=== PATIENT | female | born 1940 | race African-American/Black ===

== ENCOUNTER 2017-01-29 17:55 | Inpatient (IN) | payer MEDICARE, MEDICAID ==
[~2017-01-29] VITALS: Ht 167.6 cm; Wt 92.1 kg
[~2017-01-29 17:55] MED LIST: ALPHAGAN; AMLO5TAB88 PO; AZOPT; BACLOFEN; CALC1TAB58; CIPROFLOXACIN; COLC0.6C3 PO; DOCUSATE SODIUM; FERR-43 PO; FOLI1TAB63 PO; FURO80TA3 PO; GABA300S PO; HYDR-4001 PO; INSULIN 70/30; LACT1CAP68 PO; LUMIGAN; LUMIGAN BOTHEYE; METO10TA94; METO5TAB69 PO; MOM PO; NEBI5TAB3 PO; OMEP20CA10 PO; PILOCARPINE; POTA20TA34 PO; POTASSIUM; SITA100T11 PO; SPIR25TA4 PO; TADA20TA31 PO; TRAM150C25 PO; [UNRECOGNIZED DRUG - OTHER]
[2017-01-29 18:51] LABS: BASOPHILS % 0.2 % (0.0-2.0); EOSINOPHILS % 1.7 % (0.0-5.0); HEMATOCRIT. 29.7 % (36.0-48.0); HEMOGLOBIN. 10.2 g/dL (12.0-16.0); LYMPHOCYTES % 7.6 % (20.0-50.0); MEAN CORPUSCULAR HEMOGLOBIN 28.5 pg (28.0-32.0); MEAN CORPUSCULAR VOLUME 82.7 fL (81.0-99.0); MEAN PLATELET VOLUME 6.7 fl (7.4-10.4); MONOCYTES % 9.7 % (2.0-8.0); NEUTROPHILS % 80.8 % (40.0-76.0); PLATELET 215 x1000/uL (130-400); RED BLOOD CELL COUNT 3.59 mill/uL (4.2-5.4)
[2017-01-29 18:54] LABS: CHLORIDE 87 mEq/L (98-107)
[2017-01-29 18:55] LABS: INR 1.2; PROTHROMBIN TIME 12.1 sec
[2017-01-29 19:03] LABS: CARBON DIOXIDE 27 mEq/L (21-32)
[2017-01-29 19:05] LABS: TROPONIN I < 0.02 ng/mL (0.00-0.04)
[2017-01-29] MEDS ORDERED: ASPIRIN 81MG TABLET PO ONE (20:15)
[2017-01-29] MEDS ORDERED: FUROSEMIDE 40MG/4ML VIAL IV ONE (20:15)
[2017-01-29] MEDS ORDERED: ASPIRIN 81MG TABLET PO NR (22:05)
[2017-01-30] MEDS ORDERED: HYDROCODONE/ACETAMINOPHEN 5/325MG TABLET PO ONE (00:30)
[2017-01-30] MEDS ORDERED: ONDANSETRON HCL 4MG/2ML VIAL IV PRN (02:30)
[2017-01-30] MEDS ORDERED: IPRATROPIUM/ALBUTEROL 0.5-3(2.5)MG/3ML NEB HHN PRN (02:30)
[2017-01-30] MEDS ORDERED: DEXTROSE 50% WATER 50ML SYRINGE IV PRN (02:30)
[2017-01-30] MEDS: BLOOD SUGAR DIAGNOSTIC STRIP TEST SCH ×4 (07:01→21:37)
[2017-01-30] MEDS: ENOXAPARIN 40MG/0.4ML SYR SUBCUT SCH ×2 (08:32→08:37)
[2017-01-30] MEDS: FAMOTIDINE 20MG/2ML VIAL IV SCH (08:32)
[2017-01-30] MEDS: INSULIN LISPRO 100 UNITS/ML SUBCUT SCH ×4 (08:34→21:36)
[2017-01-30] MEDS: INSULIN DETEMIR UD 100 UNITS/ML SYR SUBCUT SCH ×2 (09:16→21:36)
[2017-01-30 09:46] LABS: BASOPHILS % 0.2 % (0.0-2.0); EOSINOPHILS % 2.4 % (0.0-5.0); HEMATOCRIT. 27.7 % (36.0-48.0); HEMOGLOBIN. 9.5 g/dL (12.0-16.0); LYMPHOCYTES % 10.3 % (20.0-50.0); MEAN CORPUSCULAR HEMOGLOBIN 28.2 pg (28.0-32.0); MEAN CORPUSCULAR VOLUME 81.8 fL (81.0-99.0); MONOCYTES % 9.6 % (2.0-8.0); NEUTROPHILS % 77.5 % (40.0-76.0); PLATELET 223 x1000/uL (130-400); RED BLOOD CELL COUNT 3.38 mill/uL (4.2-5.4); RED CELL DISTRIBUTION WIDTH 13.8 % (11.6-14.6)
[2017-01-30 12:43] LABS: CLARITY URINE CLEAR (CLEAR); COLOR URINE YELLOW (YELLOW); KETONES URINE NEGATIVE (NEGATIVE); LEUKOCYTE ESTERASE URINE 2+ (NEGATIVE); NITRITE URINE NEGATIVE (NEGATIVE); OCCULT BLOOD URINE NEGATIVE (NEGATIVE); PROTEIN URINE NEGATIVE (NEGATIVE); SPECIFIC GRAVITY URINE 1.008 (1.005-1.030); UROBILINOGEN URINE 0.2 E.U./dL (0.2-1.0)
[2017-01-30] MEDS: SILDENAFIL CITRATE 20MG TABLET PO SCH ×2 (13:47→21:29)
[2017-01-30] MEDS ORDERED: ALLO100T PO (16:34)
[2017-01-30] MEDS ORDERED: ASPI-986 PO (16:35)
[2017-01-30] MEDS ORDERED: diclofenac BOTHEYE (16:37)
[2017-01-30] MEDS ORDERED: INSU3INS6 SUBCUT (16:39)
[2017-01-30] MEDS ORDERED: MULT-1146 PO (16:43)
[2017-01-30] MEDS ORDERED: OCD PO (16:48)
[2017-01-30] MEDS ORDERED: RANI150T7 PO (16:48)
[2017-01-30] MEDS ORDERED: NEPVIT PO (16:48)
[2017-01-30] MEDS ORDERED: VIAG50 PO (16:50)
[2017-01-30] MEDS ORDERED: BRIN8DRO BOTHEYE ×2 (16:52→17:08)
[2017-01-30] MEDS ORDERED: LINA5TAB PO (16:55)
[2017-01-30] MEDS ORDERED: TRIA15OI8 TP (16:56)
[2017-01-30] MEDS ORDERED: MAGN400C PO (17:05)
[2017-01-30] MEDS: HYDROCODONE/ACETAMINOPHEN 5/325MG TABLET PO PRN (17:21)
[2017-01-30] MEDS: LATANOPROST 0.005% OPHTH DROPS 2.5ML BOTHEYE SCH (21:29)
[2017-01-31] MEDS: HYDROCODONE/ACETAMINOPHEN 5/325MG TABLET PO PRN ×3 (04:49→21:20)
[2017-01-31] MEDS: SILDENAFIL CITRATE 20MG TABLET PO SCH ×3 (06:02→21:20)
[2017-01-31 06:16] LABS: BASOPHILS % 0.2 % (0.0-2.0); EOSINOPHILS % 2.3 % (0.0-5.0); HEMATOCRIT. 27.1 % (36.0-48.0); HEMOGLOBIN. 9.2 g/dL (12.0-16.0); LYMPHOCYTES % 8.1 % (20.0-50.0); MEAN CORPUSCULAR HEMOGLOBIN 28.3 pg (28.0-32.0); MEAN CORPUSCULAR VOLUME 83.1 fL (81.0-99.0); MEAN PLATELET VOLUME 7.2 fl (7.4-10.4); MONOCYTES % 10.7 % (2.0-8.0); NEUTROPHILS % 78.7 % (40.0-76.0); PLATELET 223 x1000/uL (130-400); RED BLOOD CELL COUNT 3.26 mill/uL (4.2-5.4); RED CELL DISTRIBUTION WIDTH 14.1 % (11.6-14.6)
[2017-01-31] MEDS: BLOOD SUGAR DIAGNOSTIC STRIP TEST SCH ×4 (07:27→21:22)
[2017-01-31] MEDS: INSULIN LISPRO 100 UNITS/ML SUBCUT SCH ×4 (07:28→21:21)
[2017-01-31] MEDS ORDERED: POTASSIUM CHLORIDE 20MEQ TABLET SR PO NR (09:00)
[2017-01-31] MEDS: FAMOTIDINE 20MG/2ML VIAL IV SCH (09:09)
[2017-01-31] MEDS: ENOXAPARIN 40MG/0.4ML SYR SUBCUT SCH (09:09)
[2017-01-31] MEDS: INSULIN DETEMIR UD 100 UNITS/ML SYR SUBCUT SCH ×2 (09:16→22:01)
[2017-01-31] MEDS ORDERED: SODIUM CHL 0.9% IV ONE (14:15)
[2017-01-31] MEDS ORDERED: KCL IV ONE (14:15)
[2017-01-31] MEDS: CLOPIDOGREL 75MG TABLET PO SCH (15:01)
[2017-01-31] MEDS ORDERED: POTASSIUM CHLORIDE INJ 20 MEQ in SODIUM CHLORIDE 0.9% 250 ML IV NR (17:00)
[2017-01-31] MEDS: ATORVASTATIN CALCIUM 40MG TABLET PO SCH (21:20)
[2017-01-31] MEDS: LATANOPROST 0.005% OPHTH DROPS 2.5ML BOTHEYE SCH (21:20)
[2017-02-01] MEDS: SILDENAFIL CITRATE 20MG TABLET PO SCH ×3 (05:50→22:26)
[2017-02-01 06:06] LABS: BASOPHILS % 0.3 % (0.0-2.0); EOSINOPHILS % 3.3 % (0.0-5.0); HEMOGLOBIN. 9.3 g/dL (12.0-16.0); MEAN CORPUSCULAR HEMOGLOBIN 28.5 pg (28.0-32.0); MEAN CORPUSCULAR VOLUME 83.2 fL (81.0-99.0); MEAN PLATELET VOLUME 6.9 fl (7.4-10.4); MONOCYTES % 8.2 % (2.0-8.0); NEUTROPHILS % 79.2 % (40.0-76.0); PLATELET 234 x1000/uL (130-400); RED BLOOD CELL COUNT 3.25 mill/uL (4.2-5.4)
[2017-02-01] MEDS: BLOOD SUGAR DIAGNOSTIC STRIP TEST SCH ×4 (07:34→21:00)
[2017-02-01] MEDS: ENOXAPARIN 40MG/0.4ML SYR SUBCUT SCH (08:39)
[2017-02-01] MEDS: FAMOTIDINE 20MG/2ML VIAL IV SCH (08:39)
[2017-02-01] MEDS: CLOPIDOGREL 75MG TABLET PO SCH (08:39)
[2017-02-01] MEDS: INSULIN LISPRO 100 UNITS/ML SUBCUT SCH ×4 (08:40→22:28)
[2017-02-01] MEDS: INSULIN DETEMIR UD 100 UNITS/ML SYR SUBCUT SCH ×2 (09:30→22:27)
[2017-02-01] MEDS: LEVOFLOXACIN 250MG TABLET PO SCH (11:29)
[2017-02-01] MEDS ORDERED: POTASSIUM CHLORIDE INJ 20 MEQ in SODIUM CHLORIDE 0.9% 250 ML IV ONE (11:30)
[2017-02-01] MEDS: ATORVASTATIN CALCIUM 40MG TABLET PO SCH (22:26)
[2017-02-01] MEDS: LATANOPROST 0.005% OPHTH DROPS 2.5ML BOTHEYE SCH (22:26)
[2017-02-01] MEDS: HYDROCODONE/ACETAMINOPHEN 5/325MG TABLET PO PRN (22:39)
[2017-02-02] MEDS: SILDENAFIL CITRATE 20MG TABLET PO SCH ×2 (06:02→14:25)
[2017-02-02] MEDS: BLOOD SUGAR DIAGNOSTIC STRIP TEST SCH ×2 (06:05→13:33)
[2017-02-02] MEDS: HYDROCODONE/ACETAMINOPHEN 5/325MG TABLET PO PRN (06:09)
[2017-02-02] MEDS: INSULIN LISPRO 100 UNITS/ML SUBCUT SCH ×2 (07:37→14:27)
[2017-02-02] MEDS ORDERED: FOLIC ACID/VITAMIN B COMP W-C TABLET PO SCH (09:00)
[2017-02-02] MEDS ORDERED: SPIRONOLACTONE 50MG TABLET PO SCH (09:00)
[2017-02-02] MEDS: LEVOFLOXACIN 250MG TABLET PO SCH (10:28)
[2017-02-02] MEDS: CLOPIDOGREL 75MG TABLET PO SCH (10:28)
[2017-02-02] MEDS: FAMOTIDINE 20MG/2ML VIAL IV SCH (10:29)
[2017-02-02] MEDS: ENOXAPARIN 40MG/0.4ML SYR SUBCUT SCH (10:30)
[2017-02-02] MEDS: INSULIN DETEMIR UD 100 UNITS/ML SYR SUBCUT SCH (10:31)
[2017-02-02 16:31] VITALS: BP 146/93
[2017-02-04 09:08] LABS: ANGIOTENSION CONVERTING ENZYME 28 U/L (14-82)
[2017-02-05 14:20] LABS: ANA IFA Negative (.)
[2017-02-22] MEDS ORDERED: ASPI-1158 PO (01:00)
[2017-02-22] MEDS ORDERED: COLC0.6C3 PO (01:00)
[2017-02-22] MEDS ORDERED: CLOP75TA33 PO (01:00)
[2017-02-22] MEDS ORDERED: ATOR40TA70 PO (01:00)
[2017-02-22] MEDS ORDERED: METO5TAB69 PO (01:00)
[2017-02-22] MEDS ORDERED: SITA50TA3 PO (01:00)
[2017-02-22] MEDS ORDERED: FURO80TA3 PO (01:00)
[2017-02-22] MEDS ORDERED: KETO5DRO37 EACHEYE (01:00)
[2017-02-22] MEDS ORDERED: TRAV2.5D EACHEYE (01:00)
[2017-02-22] MEDS ORDERED: CALC-1232 PO (01:00)
[2017-02-22] MEDS ORDERED: OMEP20CA10 PO (01:00)
[2017-02-22] MEDS ORDERED: SPIR50TA26 PO (01:00)
[2017-02-22] MEDS ORDERED: BIMA2.5D4 EACHEYE (02:36)
[2017-02-22] MEDS ORDERED: SIMBRINZA EACHEYE (02:36)
[2017-02-22] MEDS ORDERED: SLOW RELEASE IRON PO (02:36)
[2017-05-17] MEDS ORDERED: TADA5TAB PO (07:57)
[2017-05-17] MEDS ORDERED: ALLO100T PO (07:59)
[2017-05-17] MEDS ORDERED: RANI150T7 PO (07:59)
[2017-05-17] MEDS ORDERED: POTA20TA12 PO (07:59)
[2017-05-17] MEDS ORDERED: INSU100I28 SQ (07:59)
[2017-05-17] MEDS ORDERED: TRIA15OI8 TP (08:03)
== END 2017-02-02 17:05 | disposition home or self-care (01) | DRG 682 ==
LOC: ER 17:55 → 7WST 20:59 → ENRESERV 22:33
PROVIDERS: ADMIT Internal Medicine; ATTEND Internal Medicine
DX: N17.9 Acute kidney failure, unspecified (principal); I50.33 Acute on chronic diastolic (congestive) heart failure; I13.0 Hypertensive heart and chronic kidney disease with heart failure and stage 1 through stage 4 chronic kidney disease, or unspecified chronic kidney disease; E87.1 Hypo-osmolality and hyponatremia; I31.3 Pericardial effusion (noninflammatory); J84.9 Interstitial pulmonary disease, unspecified; N39.0 Urinary tract infection, site not specified; R55 Syncope and collapse; I27.2 Other secondary pulmonary hypertension; E86.0 Dehydration; N18.3 Chronic kidney disease, stage 3 (moderate); I65.22 Occlusion and stenosis of left carotid artery; E66.01 Morbid (severe) obesity due to excess calories; D64.9 Anemia, unspecified; E11.22 Type 2 diabetes mellitus with diabetic chronic kidney disease; M10.9 Gout, unspecified; Z79.82 Long term (current) use of aspirin; Z79.84 Long term (current) use of oral hypoglycemic drugs; Z79.899 Other long term (current) drug therapy; Z82.49 Family history of ischemic heart disease and other diseases of the circulatory system; Z83.3 Family history of diabetes mellitus; Z86.011 Personal history of benign neoplasm of the brain; Z86.73 Personal history of transient ischemic attack (TIA), and cerebral infarction without residual deficits; Z95.0 Presence of cardiac pacemaker; Z88.0 Allergy status to penicillin; Z88.1 Allergy status to other antibiotic agents; Z68.32 Body mass index [BMI] 32.0-32.9, adult
CPT/HCPCS: 36415; 70450; 71010; 71250; 80048; 80053; 80061; 81001; 82164; 82962; 83735; 83880; 84484; 85025; 85610; 86256; 86431; 86635; 87077; 87086; 87186; 93005; 93306; 93880; 93970; 96374; 99285; J1650; J1815; J1940; J3480; J3490; J7050

== ENCOUNTER 2017-03-27 17:40 | Inpatient (IN) | payer MEDICARE, MEDICAID ==
[~2017-03-27] VITALS: Ht 162.6 cm; Wt 69.9 kg
[~2017-03-27 17:40] MED LIST changes: -ALPHAGAN; -AMLO5TAB88 PO; +ATOR40TA70 PO; -AZOPT; -BACLOFEN; +BIMA2.5D4 EACHEYE; +BRIN8DRO BOTHEYE; -CALC1TAB58; -CIPROFLOXACIN; +CLOP75TA33 PO; -DOCUSATE SODIUM; -FERR-43 PO; -FOLI1TAB63 PO; -FURO80TA3 PO; -GABA300S PO; -HYDR-4001 PO; -INSULIN 70/30; -LACT1CAP68 PO; +LINA5TAB PO; -LUMIGAN; -LUMIGAN BOTHEYE; -METO10TA94; -MOM PO; -NEBI5TAB3 PO; +NEPVIT PO; +OCD PO; -OMEP20CA10 PO; -PILOCARPINE; -POTA20TA34 PO; -POTASSIUM; -SITA100T11 PO; +SITA50TA3 PO; -SPIR25TA4 PO; +SPIR50TA26 PO; -TADA20TA31 PO; -TRAM150C25 PO; -[UNRECOGNIZED DRUG - OTHER]; +diclofenac BOTHEYE
[2017-03-27] MEDS ORDERED: ONDANSETRON HCL 4MG/2ML VIAL IV STA (18:49)
[2017-03-27] MEDS ORDERED: MORPHINE SULFATE 4 MG/ML CPJ (NOT FOR IM USE) IV STA (18:49)
[2017-03-27] MEDS ORDERED: ACETAMINOPHEN 325MG TABLET PO STA (18:49)
[2017-03-27] MEDS ORDERED: SODIUM CHLORIDE 0.9% 500 ML IV ONE (18:49)
[2017-03-27] MEDS ORDERED: LEVOFLOXACIN 750MG PREMIX 150 ML IV ONE (19:00)
[2017-03-27] MEDS ORDERED: SODIUM CHLORIDE 0.9% 1000ML BAG (SEPSIS BOLUS) IV ONE (19:00)
[2017-03-27 19:12] LABS: HEMATOCRIT. 29.2 % (36.0-48.0); HEMOGLOBIN. 9.8 g/dL (12.0-16.0); MEAN CORPUSCULAR VOLUME 80.7 fL (81.0-99.0); MEAN PLATELET VOLUME 6.5 fl (7.4-10.4); PLATELET 302 x1000/uL (130-400); RED BLOOD CELL COUNT 3.62 mill/uL (4.2-5.4)
[2017-03-27 19:15] LABS: INR 1.2; PROTHROMBIN TIME 12.2 sec (9.4-11.6)
[2017-03-27 19:16] LABS: CARBON DIOXIDE 22 mEq/L (21-32); CHLORIDE 99 mEq/L (98-107)
[2017-03-27 19:25] LABS: CREATINE KINASE 80 IU/L (26-192); TROPONIN I 0.03 ng/mL (0.00-0.04)
[2017-03-27 19:33] LABS: PLATELET ESTIMATE NORMAL
[2017-03-27] MEDS ORDERED: LEVOFLOXACIN 250MG TABLET PO ONE (20:45)
[2017-03-27 21:31] LABS: CLARITY URINE CLOUDY (CLEAR); COLOR URINE YELLOW (YELLOW); GLUCOSE URINE NEGATIVE (NEGATIVE); KETONES URINE NEGATIVE (NEGATIVE); LEUKOCYTE ESTERASE URINE 2+ (NEGATIVE); NITRITE URINE NEGATIVE (NEGATIVE); OCCULT BLOOD URINE 2+ (NEGATIVE); PROTEIN URINE TRACE (NEGATIVE)
[2017-03-28 03:06] VITALS: BP 135/91
[2017-03-28 04:00] VITALS: BP 155/52
[2017-03-28] MEDS ORDERED: DEXTROSE 50% WATER 50ML SYRINGE IV PRN ×2 (04:15→22:15)
[2017-03-28] MEDS ORDERED: ONDANSETRON HCL 4MG/2ML VIAL IV PRN (04:30)
[2017-03-28] MEDS ORDERED: ACETAMINOPHEN 650MG SUPP PR PRN (04:30)
[2017-03-28] MEDS: SODIUM CHLORIDE 0.45% 1,000 ML IV SCH ×2 (06:44→21:01)
[2017-03-28] MEDS: INSULIN LISPRO 100 UNITS/ML SUBCUT SCH ×4 (06:45→21:04)
[2017-03-28] MEDS: BLOOD SUGAR DIAGNOSTIC STRIP TEST SCH ×4 (06:47→21:33)
[2017-03-28 06:54] LABS: HEMATOCRIT. 27.4 % (36.0-48.0); HEMOGLOBIN. 9.3 g/dL (12.0-16.0); MEAN CORPUSCULAR HEMOGLOBIN 27.4 pg (28.0-32.0); MEAN CORPUSCULAR VOLUME 80.7 fL (81.0-99.0); MEAN PLATELET VOLUME 6.9 fl (7.4-10.4); PLATELET 266 x1000/uL (130-400); RED BLOOD CELL COUNT 3.39 mill/uL (4.2-5.4)
[2017-03-28] MEDS ORDERED: SODIUM BICARBONATE 4% (2.4MEQ) 5ML VIAL IV ONE (07:33)
[2017-03-28] MEDS ORDERED: LIDOCAINE HCL 1% 20ML VIAL (Pyxis) INJ ONE (07:33)
[2017-03-28 08:00] VITALS: BP 145/45
[2017-03-28 08:06] LABS: PHOSPHORUS 3.1 mg/dL (2.5-4.9)
[2017-03-28] MEDS ORDERED: MEDICATION NOT ON FORMULARY EA (Brinzolamide/Brimonid Tart (Simbrinza 1%-0.2% Eye Drops) BOTHEYE SCH (09:00)
[2017-03-28] MEDS ORDERED: MEDICATION NOT ON FORMULARY EA (Colchicine 0.6 MG) PO SCH (09:00)
[2017-03-28] MEDS: BRIMONIDINE 0.2% OPHTH DROPS 5ML BOTHEYE SCH ×2 (09:37→16:36)
[2017-03-28] MEDS: FOLIC ACID/VITAMIN B COMP W-C TABLET PO SCH (09:37)
[2017-03-28] MEDS: CLOPIDOGREL 75MG TABLET PO SCH (09:37)
[2017-03-28] MEDS: PANTOPRAZOLE SODIUM 40 MG/VIAL IV SCH (09:38)
[2017-03-28] MEDS: DORZOLAMIDE 2% OPHTH 10 ML BOTTLE BOTHEYE SCH ×2 (09:38→16:36)
[2017-03-28] MEDS: COLCHICINE 0.6MG TABLET PO SCH (09:40)
[2017-03-28 12:00] VITALS: BP 108/54
[2017-03-28 14:12] LABS: PLATELET ESTIMATE NORMAL
[2017-03-28 16:00] VITALS: BP 137/80
[2017-03-28] MEDS: ACETAMINOPHEN 325MG TABLET PO PRN (16:36)
[2017-03-28] MEDS: LATANOPROST 0.005% OPHTH DROPS 2.5ML EACHEYE SCH (16:37)
[2017-03-28] MEDS ORDERED: MEDICATION NOT ON FORMULARY EA (Bimatoprost (Lumigan) 1 DROP) EACHEYE SCH (17:00)
[2017-03-28 20:00] VITALS: BP 123/34
[2017-03-28] MEDS: ATORVASTATIN CALCIUM 40MG TABLET PO SCH (21:01)
[2017-03-28] MEDS ORDERED: LEVOFLOXACIN 250MG PREMIX 50 ML IV SCH (23:00)
[2017-03-29] VITALS: BP 142/51
[2017-03-29] MEDS: ACETAMINOPHEN 325MG TABLET PO PRN ×2 (00:14→16:39)
[2017-03-29 04:00] VITALS: BP 141/52
[2017-03-29] MEDS: SODIUM CHLORIDE 0.45% 1,000 ML IV SCH (06:20)
[2017-03-29 06:21] LABS: HEMOGLOBIN. 9.1 g/dL (12.0-16.0); MEAN CORPUSCULAR HEMOGLOBIN 27.5 pg (28.0-32.0); MEAN CORPUSCULAR VOLUME 81.4 fL (81.0-99.0); MEAN PLATELET VOLUME 7.4 fl (7.4-10.4); PLATELET 259 x1000/uL (130-400); RED BLOOD CELL COUNT 3.31 mill/uL (4.2-5.4); RED CELL DISTRIBUTION WIDTH 15.3 % (11.6-14.6)
[2017-03-29] MEDS: BLOOD SUGAR DIAGNOSTIC STRIP TEST SCH ×4 (06:41→20:51)
[2017-03-29 06:54] LABS: PHOSPHORUS 2.9 mg/dL (2.5-4.9)
[2017-03-29 08:00] VITALS: BP 139/51
[2017-03-29] MEDS: PANTOPRAZOLE SODIUM 40 MG/VIAL IV SCH (09:18)
[2017-03-29] MEDS: COLCHICINE 0.6MG TABLET PO SCH (09:18)
[2017-03-29] MEDS: INSULIN LISPRO 100 UNITS/ML SUBCUT SCH ×4 (09:19→21:10)
[2017-03-29] MEDS: CLOPIDOGREL 75MG TABLET PO SCH (09:20)
[2017-03-29] MEDS: DORZOLAMIDE 2% OPHTH 10 ML BOTTLE BOTHEYE SCH ×2 (09:20→16:40)
[2017-03-29] MEDS: BRIMONIDINE 0.2% OPHTH DROPS 5ML BOTHEYE SCH ×2 (09:20→16:40)
[2017-03-29 12:00] VITALS: BP 128/38
[2017-03-29] MEDS: FOLIC ACID/VITAMIN B COMP W-C TABLET PO SCH (12:56)
[2017-03-29] MEDS ORDERED: POTASSIUM CHLORIDE 20MEQ TABLET SR PO NR (13:00)
[2017-03-29 16:00] VITALS: BP 144/55
[2017-03-29] MEDS: LATANOPROST 0.005% OPHTH DROPS 2.5ML EACHEYE SCH (16:40)
[2017-03-29 19:27] VITALS: BP 131/45
[2017-03-29] MEDS: ATORVASTATIN CALCIUM 40MG TABLET PO SCH (20:50)
[2017-03-29] MEDS: LEVOFLOXACIN 500MG PREMIX 100 ML IV SCH (20:51)
[2017-03-29] MEDS: HYDROCODONE/ACETAMINOPHEN 5/325MG TABLET PO PRN (22:46)
[2017-03-30 00:29] VITALS: BP 128/42
[2017-03-30 04:59] VITALS: BP 136/40
[2017-03-30 07:31] LABS: BASOPHILS % 0.3 % (0.0-2.0); EOSINOPHILS % 1.8 % (0.0-5.0); HEMATOCRIT. 26.2 % (36.0-48.0); LYMPHOCYTES % 10.3 % (20.0-50.0); MEAN CORPUSCULAR HEMOGLOBIN 27.6 pg (28.0-32.0); MEAN CORPUSCULAR VOLUME 80.2 fL (81.0-99.0); MEAN PLATELET VOLUME 7.2 fl (7.4-10.4); MONOCYTES % 11.9 % (2.0-8.0); NEUTROPHILS % 75.7 % (40.0-76.0); PLATELET 273 x1000/uL (130-400); RED BLOOD CELL COUNT 3.27 mill/uL (4.2-5.4)
[2017-03-30] MEDS: BLOOD SUGAR DIAGNOSTIC STRIP TEST SCH ×4 (07:32→21:27)
[2017-03-30 07:55] VITALS: BP 146/67
[2017-03-30] MEDS: INSULIN LISPRO 100 UNITS/ML SUBCUT SCH ×4 (08:39→21:41)
[2017-03-30] MEDS: FAMOTIDINE 20MG/2ML VIAL IV SCH (08:49)
[2017-03-30] MEDS: DORZOLAMIDE 2% OPHTH 10 ML BOTTLE BOTHEYE SCH ×2 (08:49→16:41)
[2017-03-30] MEDS: COLCHICINE 0.6MG TABLET PO SCH (08:49)
[2017-03-30] MEDS: CLOPIDOGREL 75MG TABLET PO SCH (08:49)
[2017-03-30] MEDS: BRIMONIDINE 0.2% OPHTH DROPS 5ML BOTHEYE SCH ×2 (08:49→16:41)
[2017-03-30] MEDS: FOLIC ACID/VITAMIN B COMP W-C TABLET PO SCH (08:49)
[2017-03-30 09:25] LABS: PLATELET ESTIMATE NORMAL
[2017-03-30] MEDS: HYDROCODONE/ACETAMINOPHEN 5/325MG TABLET PO PRN ×2 (10:36→21:42)
[2017-03-30 12:06] VITALS: BP 146/47
[2017-03-30 16:00] VITALS: BP 137/50
[2017-03-30] MEDS ORDERED: POTASSIUM CHLORIDE 20MEQ TABLET SR PO NR (16:15)
[2017-03-30] MEDS: LATANOPROST 0.005% OPHTH DROPS 2.5ML EACHEYE SCH (16:41)
[2017-03-30 17:50] LABS: CLARITY URINE CLEAR (CLEAR); COLOR URINE YELLOW (YELLOW); GLUCOSE URINE NEGATIVE (NEGATIVE); KETONES URINE NEGATIVE (NEGATIVE); LEUKOCYTE ESTERASE URINE TRACE (NEGATIVE); NITRITE URINE NEGATIVE (NEGATIVE); OCCULT BLOOD URINE 3+ (NEGATIVE); PH URINE 5.5 (4.5-8.0); PROTEIN URINE NEGATIVE (NEGATIVE); SPECIFIC GRAVITY URINE 1.013 (1.005-1.030)
[2017-03-30 20:00] VITALS: BP 142/53
[2017-03-30] MEDS: ATORVASTATIN CALCIUM 40MG TABLET PO SCH (21:27)
[2017-03-31] VITALS: BP 151/53
[2017-03-31 04:00] VITALS: BP 144/50
[2017-03-31 06:37] LABS: BASOPHILS % 0.7 % (0.0-2.0); EOSINOPHILS % 3.1 % (0.0-5.0); HEMOGLOBIN. 9.2 g/dL (12.0-16.0); MEAN CORPUSCULAR HEMOGLOBIN 27.6 pg (28.0-32.0); MEAN CORPUSCULAR VOLUME 81.4 fL (81.0-99.0); MEAN PLATELET VOLUME 7.1 fl (7.4-10.4); MONOCYTES % 11.1 % (2.0-8.0); NEUTROPHILS % 70.1 % (40.0-76.0); PLATELET 293 x1000/uL (130-400); RED BLOOD CELL COUNT 3.32 mill/uL (4.2-5.4); RED CELL DISTRIBUTION WIDTH 15.2 % (11.6-14.6)
[2017-03-31] MEDS: BLOOD SUGAR DIAGNOSTIC STRIP TEST SCH ×4 (07:09→20:46)
[2017-03-31 08:08] VITALS: BP 134/43
[2017-03-31] MEDS: INSULIN LISPRO 100 UNITS/ML SUBCUT SCH ×4 (08:37→21:04)
[2017-03-31] MEDS: CLOPIDOGREL 75MG TABLET PO SCH (08:38)
[2017-03-31] MEDS: FAMOTIDINE 20MG/2ML VIAL IV SCH (08:38)
[2017-03-31] MEDS: FOLIC ACID/VITAMIN B COMP W-C TABLET PO SCH (08:38)
[2017-03-31] MEDS: COLCHICINE 0.6MG TABLET PO SCH (08:38)
[2017-03-31] MEDS: DORZOLAMIDE 2% OPHTH 10 ML BOTTLE BOTHEYE SCH ×2 (08:39→18:02)
[2017-03-31] MEDS: BRIMONIDINE 0.2% OPHTH DROPS 5ML BOTHEYE SCH ×2 (08:39→18:02)
[2017-03-31] MEDS: HYDROCODONE/ACETAMINOPHEN 5/325MG TABLET PO PRN ×3 (08:39→23:30)
[2017-03-31 12:00] VITALS: BP 137/52
[2017-03-31] MEDS ORDERED: COLCHICINE 0.6MG TABLET PO SCH (14:27)
[2017-03-31 16:00] VITALS: BP 131/43
[2017-03-31] MEDS: LATANOPROST 0.005% OPHTH DROPS 2.5ML EACHEYE SCH (18:03)
[2017-03-31 20:00] VITALS: BP 137/52
[2017-03-31] MEDS: ATORVASTATIN CALCIUM 40MG TABLET PO SCH (20:49)
[2017-03-31] MEDS: LEVOFLOXACIN 500MG PREMIX 100 ML IV SCH (20:49)
[2017-04-01] VITALS: BP 144/51
[2017-04-01 04:00] VITALS: BP 145/52
[2017-04-01] MEDS: BLOOD SUGAR DIAGNOSTIC STRIP TEST SCH ×4 (07:35→21:14)
[2017-04-01 08:09] VITALS: BP 136/36
[2017-04-01] MEDS: INSULIN LISPRO 100 UNITS/ML SUBCUT SCH ×4 (08:15→21:13)
[2017-04-01] MEDS: FOLIC ACID/VITAMIN B COMP W-C TABLET PO SCH (08:16)
[2017-04-01] MEDS: BRIMONIDINE 0.2% OPHTH DROPS 5ML BOTHEYE SCH ×2 (08:16→16:50)
[2017-04-01] MEDS: DORZOLAMIDE 2% OPHTH 10 ML BOTTLE BOTHEYE SCH ×2 (08:16→16:50)
[2017-04-01] MEDS: FAMOTIDINE 20MG/2ML VIAL IV SCH (08:16)
[2017-04-01] MEDS: CLOPIDOGREL 75MG TABLET PO SCH (08:16)
[2017-04-01] MEDS: COLCHICINE 0.6MG TABLET PO SCH (08:16)
[2017-04-01 11:58] VITALS: BP 139/45
[2017-04-01] MEDS: HYDROCODONE/ACETAMINOPHEN 5/325MG TABLET PO PRN (15:37)
[2017-04-01 16:18] VITALS: BP 156/62
[2017-04-01] MEDS: LATANOPROST 0.005% OPHTH DROPS 2.5ML EACHEYE SCH (16:50)
[2017-04-01 20:14] VITALS: BP 135/49
[2017-04-01] MEDS: ATORVASTATIN CALCIUM 40MG TABLET PO SCH (21:11)
[2017-04-02 00:26] VITALS: BP 142/48
[2017-04-02] MEDS: HYDROCODONE/ACETAMINOPHEN 5/325MG TABLET PO PRN (01:03)
[2017-04-02 04:00] VITALS: BP 140/48
[2017-04-02] MEDS: BLOOD SUGAR DIAGNOSTIC STRIP TEST SCH (06:22)
[2017-04-02 06:39] LABS: BASOPHILS % 0.5 % (0.0-2.0); EOSINOPHILS % 3.6 % (0.0-5.0); HEMATOCRIT. 27.5 % (36.0-48.0); HEMOGLOBIN. 9.3 g/dL (12.0-16.0); LYMPHOCYTES % 19.3 % (20.0-50.0); MEAN CORPUSCULAR HEMOGLOBIN 27.3 pg (28.0-32.0); MEAN CORPUSCULAR VOLUME 81.2 fL (81.0-99.0); MEAN PLATELET VOLUME 7.1 fl (7.4-10.4); MONOCYTES % 8.9 % (2.0-8.0); NEUTROPHILS % 67.7 % (40.0-76.0); PLATELET 320 x1000/uL (130-400); RED BLOOD CELL COUNT 3.39 mill/uL (4.2-5.4); RED CELL DISTRIBUTION WIDTH 15.5 % (11.6-14.6)
[2017-04-02 08:10] VITALS: BP 131/47
[2017-04-02] MEDS: FOLIC ACID/VITAMIN B COMP W-C TABLET PO SCH (08:47)
[2017-04-02] MEDS: COLCHICINE 0.6MG TABLET PO SCH (08:47)
[2017-04-02] MEDS: INSULIN LISPRO 100 UNITS/ML SUBCUT SCH (08:47)
[2017-04-02] MEDS: FAMOTIDINE 20MG/2ML VIAL IV SCH (08:47)
[2017-04-02] MEDS: CLOPIDOGREL 75MG TABLET PO SCH (08:47)
[2017-04-02] MEDS: DORZOLAMIDE 2% OPHTH 10 ML BOTTLE BOTHEYE SCH (08:48)
[2017-04-02] MEDS: BRIMONIDINE 0.2% OPHTH DROPS 5ML BOTHEYE SCH (08:48)
[2017-04-02] MEDS ORDERED: POTASSIUM CHLORIDE 20MEQ TABLET SR PO NR (09:30)
[2017-04-02 10:14] VITALS: BP 131/47
[2017-05-17] MEDS ORDERED: TADA5TAB PO (07:57)
[2017-05-17] MEDS ORDERED: INSU100I28 SQ (07:59)
[2017-05-17] MEDS ORDERED: POTA20TA12 PO (07:59)
[2017-05-17] MEDS ORDERED: ALLO100T PO (07:59)
[2017-05-17] MEDS ORDERED: RANI150T7 PO (07:59)
[2017-05-17] MEDS ORDERED: TRIA15OI8 TP (08:03)
== END 2017-04-02 12:07 | disposition home or self-care (01) | DRG 872 ==
LOC: ER 18:07 → 6WST 20:48 → EDBEDREQTM 20:50 → EDBEDREQ 20:50 → ENRESERV 22:09
PROVIDERS: ADMIT Internal Medicine; ATTEND Internal Medicine
PROC: 02HV33Z Insertion of Infusion Device into Superior Vena Cava, Percutaneous Approach (ICD-10-PCS; principal; 2017-03-28)
PROC: B5181ZA Fluoroscopy of Superior Vena Cava using Low Osmolar Contrast, Guidance (ICD-10-PCS; 2017-03-28)
PROC: B548ZZA Ultrasonography of Superior Vena Cava, Guidance (ICD-10-PCS; 2017-03-28)
DX: A41.9 Sepsis, unspecified organism (principal); N17.9 Acute kidney failure, unspecified; I42.0 Dilated cardiomyopathy; I13.0 Hypertensive heart and chronic kidney disease with heart failure and stage 1 through stage 4 chronic kidney disease, or unspecified chronic kidney disease; E11.22 Type 2 diabetes mellitus with diabetic chronic kidney disease; I50.9 Heart failure, unspecified; I69.351 Hemiplegia and hemiparesis following cerebral infarction affecting right dominant side; N39.0 Urinary tract infection, site not specified; W01.0XXA Fall on same level from slipping, tripping and stumbling without subsequent striking against object, initial encounter; D63.8 Anemia in other chronic diseases classified elsewhere; B96.20 Unspecified Escherichia coli [E. coli] as the cause of diseases classified elsewhere; E66.9 Obesity, unspecified; E78.00 Pure hypercholesterolemia, unspecified; E86.0 Dehydration; E87.6 Hypokalemia; I27.2 Other secondary pulmonary hypertension; K29.70 Gastritis, unspecified, without bleeding; M10.9 Gout, unspecified; N18.9 Chronic kidney disease, unspecified; Z16.29 Resistance to other single specified antibiotic; Y92.002 Bathroom of unspecified non-institutional (private) residence as the place of occurrence of the external cause; Z86.011 Personal history of benign neoplasm of the brain; Z88.0 Allergy status to penicillin; Z90.49 Acquired absence of other specified parts of digestive tract; Z95.0 Presence of cardiac pacemaker; Z88.6 Allergy status to analgesic agent; Z88.1 Allergy status to other antibiotic agents; Z88.8 Allergy status to other drugs, medicaments and biological substances; Z79.899 Other long term (current) drug therapy; Z68.26 Body mass index [BMI] 26.0-26.9, adult; M47.9 Spondylosis, unspecified
CPT/HCPCS: 36415; 36569; 70450; 71010; 72125; 73110; 73130; 76770; 76937; 77001; 80048; 80053; 81001; 82550; 82962; 83605; 83735; 83880; 84100; 84443; 84484; 85025; 85610; 85651; 87040; 87077; 87086; 87186; 93005; 93970; 96374; 96375; 97163; 97530; 99285; C1725; C1893; C9113; J1815; J1956; J2270; J2405; J3490; J7040; J7050; A4315

== ENCOUNTER 2017-06-26 19:46 | Inpatient (IN) | payer MEDICARE, MEDICAID ==
[~2017-06-26] VITALS: Ht 157.5 cm; Wt 89.0 kg
[~2017-06-26 19:46] MED LIST changes: +ALLO100T PO; +INSU100I28 SQ; +POTA20TA12 PO; +RANI150T7 PO; +TADA5TAB PO; +TRIA15OI8 TP
[2017-06-26] MEDS ORDERED: FUROSEMIDE 40MG/4ML VIAL IV STA (20:16)
[2017-06-26] MEDS ORDERED: ASPIRIN 81MG TABLET PO STA (20:16)
[2017-06-26 23:32] LABS: D-DIMER 0.95 mg/L FEU (<0.50); INR 1.2; PARTIAL THROMBOPLASTIN TIME 29.8 sec (23.4-31.0); PROTHROMBIN TIME 12.8 sec (9.4-11.6)
[2017-06-26 23:37] LABS: CARBON DIOXIDE 22 mEq/L (21-32); CHLORIDE 110 mEq/L (98-107); CREATINE KINASE 63 IU/L (26-192); TROPONIN I < 0.02 ng/mL (0.00-0.04)
[2017-06-26 23:54] LABS: BASOPHILS % 0.2 % (0.0-2.0); EOSINOPHILS % 4.5 % (0.0-5.0); HEMATOCRIT. 24.2 % (36.0-48.0); LYMPHOCYTES % 17.4 % (20.0-50.0); MEAN CORPUSCULAR HEMOGLOBIN 28.4 pg (28.0-32.0); MEAN CORPUSCULAR VOLUME 85.7 fL (81.0-99.0); MEAN PLATELET VOLUME 7.1 fl (7.4-10.4); MONOCYTES % 8.7 % (2.0-8.0); NEUTROPHILS % 69.2 % (40.0-76.0); PLATELET 213 x1000/uL (130-400); RED BLOOD CELL COUNT 2.83 mill/uL (4.2-5.4); RED CELL DISTRIBUTION WIDTH 18.2 % (11.6-14.6)
[2017-06-27] MEDS ORDERED: ONDANSETRON HCL 4MG/2ML VIAL IV PRN
[2017-06-27] MEDS ORDERED: MAGNESIUM/ALUMINUM HYDROXIDE/SIMETHICONE 30ML UDC PO PRN
[2017-06-27] MEDS ORDERED: GUAIFENESIN 200MG/10ML SUGAR FREE UDC PO PRN
[2017-06-27] MEDS ORDERED: ACETAMINOPHEN 325MG TABLET PO PRN
[2017-06-27] MEDS ORDERED: IPRATROPIUM/ALBUTEROL 0.5-3(2.5)MG/3ML NEB INH PRN
[2017-06-27] MEDS ORDERED: CLONIDINE 0.1MG TABLET PO PRN
[2017-06-27 00:25] LABS: CLARITY URINE CLOUDY (CLEAR); COLOR URINE YELLOW (YELLOW); KETONES URINE NEGATIVE (NEGATIVE); LEUKOCYTE ESTERASE URINE TRACE (NEGATIVE); NITRITE URINE NEGATIVE (NEGATIVE); OCCULT BLOOD URINE NEGATIVE (NEGATIVE); PH URINE 7.5 (4.5-8.0); PROTEIN URINE NEGATIVE (NEGATIVE); SPECIFIC GRAVITY URINE 1.012 (1.005-1.030)
[2017-06-27] MEDS: HYDROCODONE/ACETAMINOPHEN 5/325MG TABLET PO PRN ×2 (02:13→21:28)
[2017-06-27] MEDS ORDERED: HYDROCODONE/ACETAMINOPHEN 5/325MG TABLET PO ONE (02:30)
[2017-06-27 05:33] LABS: BASOPHILS % 0.3 % (0.0-2.0); HEMATOCRIT. 24.9 % (36.0-48.0); HEMOGLOBIN. 8.1 g/dL (12.0-16.0); LYMPHOCYTES % 16.4 % (20.0-50.0); MEAN PLATELET VOLUME 7.4 fl (7.4-10.4); MONOCYTES % 9.5 % (2.0-8.0); NEUTROPHILS % 68.8 % (40.0-76.0); PLATELET 213 x1000/uL (130-400); RED BLOOD CELL COUNT 2.89 mill/uL (4.2-5.4); RED CELL DISTRIBUTION WIDTH 18.1 % (11.6-14.6)
[2017-06-27 05:40] LABS: CARBON DIOXIDE 20 mEq/L (21-32); CHLORIDE 111 mEq/L (98-107)
[2017-06-27 05:41] LABS: CREATINE KINASE 62 IU/L (26-192); CREATINE KINASE MB FRACTION 2.1 ng/mL (0.5-3.6); HDL CHOLESTEROL 52 mg/dL (40-59); LDL CHOLESTEROL 40 mg/dL (5-100); TROPONIN I < 0.02 ng/mL (0.00-0.04)
[2017-06-27 08:00] VITALS: BP 145/53
[2017-06-27 08:26] LABS: BG BASE EXCESS -6.2 mmol/L (-2.0-2.0); BG CARBOXYHEMOGLOBIN 0.4 % (0.5-1.5); BG DEOXYHEMOGLOBIN 2.7 % (0.0-5.0); BG FRACTION INSPIRED OXYGEN 21; BG HCO3 ACT 18.3 mmol/L (22.0-26.0); BG METHEMOGLOBIN 0.4 % (0.0-1.5); BG OXYGEN SATURATION 97.3 % (92.0-98.5); BG OXYHEMOGLOBIN 96.5 % (94.0-97.0); BG PCO2 32.1 mmHg (35.0-45.0); BG PH 7.374 (7.350-7.450); BG PO2 99.1 mmHg (75.0-100.0); BG SAMPLE SITE RIGHT BRACHIAL; BG TOTAL HEMOGLOBIN 8.4 g/dL (12.0-18.0); BG VENT MODE ROOM AIR
[2017-06-27 10:00] VITALS: BP 145/75
[2017-06-27] MEDS: CLOPIDOGREL 75MG TABLET PO SCH (11:47)
[2017-06-27] MEDS: ASPIRIN 81MG EC TABLET PO SCH (11:48)
[2017-06-27] MEDS: METOPROLOL TARTRATE 25MG TABLET PO SCH ×2 (11:48→21:22)
[2017-06-27] MEDS: POTASSIUM CHLORIDE 20MEQ TABLET SR PO SCH (11:48)
[2017-06-27] MEDS: ENOXAPARIN 40MG/0.4ML SYR SUBCUT SCH (11:49)
[2017-06-27] MEDS: LINAGLIPTIN 5MG TABLET PO SCH (11:52)
[2017-06-27] MEDS: ALLOPURINOL 100 MG TABLET PO SCH (11:52)
[2017-06-27] MEDS: FUROSEMIDE 40MG/4ML VIAL IV SCH ×2 (11:53→19:16)
[2017-06-27] MEDS: SPIRONOLACTONE 50MG TABLET PO SCH (11:55)
[2017-06-27 12:00] VITALS: BP 148/45
[2017-06-27] MEDS ORDERED: SODIUM BICARBONATE 4% (2.4MEQ) 5ML VIAL IV ONE (15:05)
[2017-06-27] MEDS ORDERED: LIDOCAINE HCL 1% 20ML VIAL (Pyxis) INJ ONE (15:05)
[2017-06-27 16:00] VITALS: BP 141/51
[2017-06-27 16:06] LABS: CREATINE KINASE 90 IU/L (26-192); CREATINE KINASE MB FRACTION 3.4 ng/mL (0.5-3.6); TROPONIN I < 0.02 ng/mL (0.00-0.04)
[2017-06-27] MEDS: BLOOD SUGAR DIAGNOSTIC STRIP TEST SCH ×2 (17:56→21:02)
[2017-06-27] MEDS: CALCIUM CARBONATE/VITAMIN D3 500MG TABLET PO SCH (19:16)
[2017-06-27 20:00] VITALS: BP 130/57
[2017-06-27] MEDS ORDERED: DEXTROSE 50% WATER 50ML SYRINGE IV PRN (21:00)
[2017-06-27] MEDS: ATORVASTATIN CALCIUM 40MG TABLET PO SCH (21:22)
[2017-06-27] MEDS: INSULIN LISPRO 100 UNITS/ML SUBCUT SCH (21:24)
[2017-06-28] VITALS: BP 122/47
[2017-06-28 04:00] VITALS: BP 114/33
[2017-06-28] MEDS: FUROSEMIDE 40MG/4ML VIAL IV SCH ×2 (05:01→09:34)
[2017-06-28] MEDS: BLOOD SUGAR DIAGNOSTIC STRIP TEST SCH ×4 (05:14→20:55)
[2017-06-28 06:10] LABS: BASOPHILS % 0.5 % (0.0-2.0); EOSINOPHILS % 4.6 % (0.0-5.0); HEMATOCRIT. 23.4 % (36.0-48.0); HEMOGLOBIN. 7.9 g/dL (12.0-16.0); LYMPHOCYTES % 19.9 % (20.0-50.0); MEAN CORPUSCULAR VOLUME 86.2 fL (81.0-99.0); MEAN PLATELET VOLUME 7.4 fl (7.4-10.4); MONOCYTES % 9.9 % (2.0-8.0); NEUTROPHILS % 65.1 % (40.0-76.0); PLATELET 197 x1000/uL (130-400); RED BLOOD CELL COUNT 2.72 mill/uL (4.2-5.4); RED CELL DISTRIBUTION WIDTH 18.2 % (11.6-14.6)
[2017-06-28 07:19] LABS: CHLORIDE 110 mEq/L (98-107)
[2017-06-28 07:40] LABS: CARBON DIOXIDE 21 mEq/L (21-32)
[2017-06-28 08:00] VITALS: BP 139/39
[2017-06-28] MEDS: INSULIN LISPRO 100 UNITS/ML SUBCUT SCH ×4 (08:06→20:55)
[2017-06-28] MEDS ORDERED: CLOPIDOGREL 75MG TABLET PO SCH (09:00)
[2017-06-28] MEDS ORDERED: POTASSIUM CHLORIDE 20MEQ TABLET SR PO SCH (09:00)
[2017-06-28] MEDS: ENOXAPARIN 40MG/0.4ML SYR SUBCUT SCH (09:34)
[2017-06-28] MEDS: ASPIRIN 81MG EC TABLET PO SCH (09:35)
[2017-06-28] MEDS: ALLOPURINOL 100 MG TABLET PO SCH (09:35)
[2017-06-28] MEDS: CALCIUM CARBONATE/VITAMIN D3 500MG TABLET PO SCH ×2 (09:35→18:04)
[2017-06-28] MEDS: LINAGLIPTIN 5MG TABLET PO SCH (09:35)
[2017-06-28] MEDS: POTASSIUM CHLORIDE 20MEQ TABLET SR PO SCH (09:35)
[2017-06-28] MEDS: METOPROLOL TARTRATE 25MG TABLET PO SCH ×2 (09:36→20:54)
[2017-06-28] MEDS: CLOPIDOGREL 75MG TABLET PO SCH (09:36)
[2017-06-28] MEDS: SPIRONOLACTONE 50MG TABLET PO SCH (09:36)
[2017-06-28 12:00] VITALS: BP 131/43
[2017-06-28] MEDS: HYDROCODONE/ACETAMINOPHEN 5/325MG TABLET PO PRN (12:59)
[2017-06-28 16:00] VITALS: BP 125/38
[2017-06-28 20:00] VITALS: BP 126/32
[2017-06-28] MEDS: ATORVASTATIN CALCIUM 40MG TABLET PO SCH (20:54)
[2017-06-29] VITALS: BP 142/45
[2017-06-29] MEDS: HYDROCODONE/ACETAMINOPHEN 5/325MG TABLET PO PRN (01:21)
[2017-06-29 04:00] VITALS: BP 133/47
[2017-06-29] MEDS: DOCUSATE SODIUM 100MG CAPSULE PO PRN (04:03)
[2017-06-29] MEDS: DIPHENHYDRAMINE 50MG/ML VIAL IV PRN (04:03)
[2017-06-29] MEDS: FUROSEMIDE 40MG/4ML VIAL IV SCH ×2 (05:27→17:47)
[2017-06-29] MEDS: BLOOD SUGAR DIAGNOSTIC STRIP TEST SCH ×4 (06:08→21:03)
[2017-06-29 06:28] LABS: BASOPHILS % 0.4 % (0.0-2.0); EOSINOPHILS % 4.5 % (0.0-5.0); HEMATOCRIT. 23.8 % (36.0-48.0); LYMPHOCYTES % 20.9 % (20.0-50.0); MEAN CORPUSCULAR VOLUME 85.9 fL (81.0-99.0); MEAN PLATELET VOLUME 6.9 fl (7.4-10.4); MONOCYTES % 11.2 % (2.0-8.0); PLATELET 177 x1000/uL (130-400); RED BLOOD CELL COUNT 2.77 mill/uL (4.2-5.4); RED CELL DISTRIBUTION WIDTH 17.9 % (11.6-14.6)
[2017-06-29 07:08] LABS: CHLORIDE 109 mEq/L (98-107)
[2017-06-29 07:13] LABS: CARBON DIOXIDE 23 mEq/L (21-32)
[2017-06-29] MEDS: INSULIN LISPRO 100 UNITS/ML SUBCUT SCH ×4 (07:23→21:00)
[2017-06-29 08:00] VITALS: BP 145/44
[2017-06-29] MEDS: POTASSIUM CHLORIDE 20MEQ TABLET SR PO SCH (08:33)
[2017-06-29] MEDS: CLOPIDOGREL 75MG TABLET PO SCH (08:34)
[2017-06-29] MEDS: LINAGLIPTIN 5MG TABLET PO SCH (08:34)
[2017-06-29] MEDS: METOPROLOL TARTRATE 25MG TABLET PO SCH ×2 (08:34→21:03)
[2017-06-29] MEDS: ASPIRIN 81MG EC TABLET PO SCH (08:34)
[2017-06-29] MEDS: SPIRONOLACTONE 50MG TABLET PO SCH (08:34)
[2017-06-29] MEDS: ALLOPURINOL 100 MG TABLET PO SCH (08:35)
[2017-06-29] MEDS: CALCIUM CARBONATE/VITAMIN D3 500MG TABLET PO SCH ×2 (08:35→17:47)
[2017-06-29] MEDS: ENOXAPARIN 40MG/0.4ML SYR SUBCUT SCH (08:35)
[2017-06-29 12:00] VITALS: BP 136/36
[2017-06-29 16:00] VITALS: BP 133/36
[2017-06-29] MEDS: SIMBRINZA OP SCH (17:47)
[2017-06-29] MEDS: OPTH OP SCH (17:47)
[2017-06-29] MEDS: LUMIGAN 0.01% OPTH SOLUTION OP SCH (17:47)
[2017-06-29] MEDS: DICLOFENAC 0.1% OP SCH (17:47)
[2017-06-29 20:15] VITALS: BP 113/43
[2017-06-29] MEDS: ATORVASTATIN CALCIUM 40MG TABLET PO SCH (21:02)
[2017-06-30] VITALS: BP 133/43
[2017-06-30] MEDS: HYDROCODONE/ACETAMINOPHEN 5/325MG TABLET PO PRN (03:13)
[2017-06-30 04:00] VITALS: BP 106/40
[2017-06-30] MEDS: BLOOD SUGAR DIAGNOSTIC STRIP TEST SCH ×4 (06:47→20:41)
[2017-06-30 07:47] VITALS: BP 117/38
[2017-06-30] MEDS: INSULIN LISPRO 100 UNITS/ML SUBCUT SCH ×4 (09:19→20:41)
[2017-06-30] MEDS: FUROSEMIDE 40MG/4ML VIAL IV SCH ×2 (09:22→17:21)
[2017-06-30] MEDS: CALCIUM CARBONATE/VITAMIN D3 500MG TABLET PO SCH ×2 (09:22→17:21)
[2017-06-30] MEDS: CLOPIDOGREL 75MG TABLET PO SCH (09:25)
[2017-06-30] MEDS: ASPIRIN 81MG EC TABLET PO SCH (09:25)
[2017-06-30] MEDS: ENOXAPARIN 40MG/0.4ML SYR SUBCUT SCH (09:25)
[2017-06-30] MEDS: POTASSIUM CHLORIDE 20MEQ TABLET SR PO SCH (09:25)
[2017-06-30] MEDS: LINAGLIPTIN 5MG TABLET PO SCH (09:26)
[2017-06-30] MEDS: DOCUSATE SODIUM 100MG CAPSULE PO PRN (09:26)
[2017-06-30] MEDS: METOPROLOL TARTRATE 25MG TABLET PO SCH ×2 (09:31→20:54)
[2017-06-30] MEDS: ALLOPURINOL 100 MG TABLET PO SCH (09:32)
[2017-06-30] MEDS: SPIRONOLACTONE 50MG TABLET PO SCH (09:32)
[2017-06-30] MEDS: OPTH OP SCH ×2 (09:33→17:00)
[2017-06-30] MEDS: DICLOFENAC 0.1% OP SCH ×2 (09:33→17:00)
[2017-06-30] MEDS: SIMBRINZA OP SCH ×2 (09:35→17:20)
[2017-06-30 12:20] VITALS: BP 115/36
[2017-06-30 15:56] VITALS: BP 121/39
[2017-06-30] MEDS: LUMIGAN 0.01% OPTH SOLUTION OP SCH (17:20)
[2017-06-30 20:14] VITALS: BP 119/41
[2017-06-30] MEDS: ATORVASTATIN CALCIUM 40MG TABLET PO SCH (20:54)
[2017-07-01] VITALS: BP 127/37
[2017-07-01] MEDS: HYDROCODONE/ACETAMINOPHEN 5/325MG TABLET PO PRN (00:36)
[2017-07-01 04:00] VITALS: BP 124/36
[2017-07-01] MEDS: DIPHENHYDRAMINE 50MG/ML VIAL IV PRN (05:07)
[2017-07-01] MEDS: BLOOD SUGAR DIAGNOSTIC STRIP TEST SCH ×4 (06:13→20:54)
[2017-07-01] MEDS: FUROSEMIDE 40MG/4ML VIAL IV SCH ×2 (06:28→17:35)
[2017-07-01 08:00] VITALS: BP 142/40
[2017-07-01] MEDS: OPTH OP SCH ×2 (09:55→17:35)
[2017-07-01] MEDS: SIMBRINZA OP SCH ×2 (09:55→17:34)
[2017-07-01] MEDS: DICLOFENAC 0.1% OP SCH ×2 (09:55→17:35)
[2017-07-01] MEDS: CLOPIDOGREL 75MG TABLET PO SCH (09:56)
[2017-07-01] MEDS: ASPIRIN 81MG EC TABLET PO SCH (09:56)
[2017-07-01] MEDS: ALLOPURINOL 100 MG TABLET PO SCH (09:56)
[2017-07-01] MEDS: LINAGLIPTIN 5MG TABLET PO SCH (09:56)
[2017-07-01] MEDS: CALCIUM CARBONATE/VITAMIN D3 500MG TABLET PO SCH ×2 (09:56→17:35)
[2017-07-01] MEDS: SPIRONOLACTONE 50MG TABLET PO SCH (09:56)
[2017-07-01] MEDS: POTASSIUM CHLORIDE 20MEQ TABLET SR PO SCH (09:56)
[2017-07-01] MEDS: METOPROLOL TARTRATE 25MG TABLET PO SCH ×2 (09:57→20:54)
[2017-07-01] MEDS: ENOXAPARIN 40MG/0.4ML SYR SUBCUT SCH (09:58)
[2017-07-01] MEDS: INSULIN LISPRO 100 UNITS/ML SUBCUT SCH ×4 (09:59→21:00)
[2017-07-01 12:00] VITALS: BP 143/37
[2017-07-01 16:00] VITALS: BP 120/43
[2017-07-01] MEDS: LUMIGAN 0.01% OPTH SOLUTION OP SCH (17:35)
[2017-07-01 20:00] VITALS: BP 140/59
[2017-07-01] MEDS: ATORVASTATIN CALCIUM 40MG TABLET PO SCH (20:53)
[2017-07-02] VITALS: BP 140/56
[2017-07-02] MEDS: DIPHENHYDRAMINE 50MG/ML VIAL IV PRN (02:44)
[2017-07-02 04:00] VITALS: BP 107/63
[2017-07-02] MEDS: FUROSEMIDE 40MG/4ML VIAL IV SCH (06:27)
[2017-07-02] MEDS: BLOOD SUGAR DIAGNOSTIC STRIP TEST SCH ×2 (06:27→12:40)
[2017-07-02] MEDS: INSULIN LISPRO 100 UNITS/ML SUBCUT SCH ×2 (06:27→13:10)
[2017-07-02 08:00] VITALS: BP 134/47
[2017-07-02] MEDS: DOCUSATE SODIUM 100MG CAPSULE PO PRN (08:49)
[2017-07-02] MEDS: OPTH OP SCH (08:59)
[2017-07-02] MEDS: DICLOFENAC 0.1% OP SCH (08:59)
[2017-07-02] MEDS ORDERED: HYDROCODONE/ACETAMINOPHEN 5/325MG TABLET PO PRN (09:00)
[2017-07-02] MEDS: SIMBRINZA OP SCH (09:00)
[2017-07-02] MEDS: ALLOPURINOL 100 MG TABLET PO SCH (09:27)
[2017-07-02] MEDS: ASPIRIN 81MG EC TABLET PO SCH (09:27)
[2017-07-02] MEDS: LINAGLIPTIN 5MG TABLET PO SCH (09:27)
[2017-07-02] MEDS: CLOPIDOGREL 75MG TABLET PO SCH (09:27)
[2017-07-02] MEDS: POTASSIUM CHLORIDE 20MEQ TABLET SR PO SCH (09:27)
[2017-07-02] MEDS: SPIRONOLACTONE 50MG TABLET PO SCH (09:28)
[2017-07-02] MEDS: METOPROLOL TARTRATE 25MG TABLET PO SCH (09:31)
[2017-07-02] MEDS: CALCIUM CARBONATE/VITAMIN D3 500MG TABLET PO SCH (09:33)
[2017-07-02] MEDS: ENOXAPARIN 40MG/0.4ML SYR SUBCUT SCH (09:35)
[2017-07-02 12:00] VITALS: BP 125/48
[2017-07-02 12:40] VITALS: BP 105/48
[2017-07-02 16:00] VITALS: BP 119/42
== END 2017-07-02 17:05 | disposition home or self-care (01) | DRG 291 ==
LOC: ER 19:46 → 7WST 23:31 → EDBEDREQ 23:33 → EDBEDREQTM 23:33 → SUPCPDRO 23:57 → ENRESERV 06-27 06:54
PROVIDERS: ADMIT Hospitalist; ATTEND Hospitalist
PROC: 02HV33Z Insertion of Infusion Device into Superior Vena Cava, Percutaneous Approach (ICD-10-PCS; principal; 2017-06-27)
PROC: B518ZZA Fluoroscopy of Superior Vena Cava, Guidance (ICD-10-PCS; 2017-06-27)
PROC: B548ZZA Ultrasonography of Superior Vena Cava, Guidance (ICD-10-PCS; 2017-06-27)
DX: I13.0 Hypertensive heart and chronic kidney disease with heart failure and stage 1 through stage 4 chronic kidney disease, or unspecified chronic kidney disease (principal); I50.43 Acute on chronic combined systolic (congestive) and diastolic (congestive) heart failure; E11.22 Type 2 diabetes mellitus with diabetic chronic kidney disease; I27.20 Pulmonary hypertension, unspecified; I49.5 Sick sinus syndrome; N18.9 Chronic kidney disease, unspecified; D64.9 Anemia, unspecified; Z95.0 Presence of cardiac pacemaker; Z90.49 Acquired absence of other specified parts of digestive tract; Z79.899 Other long term (current) drug therapy; Z79.4 Long term (current) use of insulin; Z79.02 Long term (current) use of antithrombotics/antiplatelets; Z88.0 Allergy status to penicillin; Z88.8 Allergy status to other drugs, medicaments and biological substances; Z86.011 Personal history of benign neoplasm of the brain; Z88.1 Allergy status to other antibiotic agents
CPT/HCPCS: 36415; 36569; 36600; 51702; 71010; 76937; 77001; 80048; 80053; 80061; 81001; 82375; 82550; 82553; 82805; 82962; 83605; 83690; 83880; 84443; 84484; 85025; 85379; 85610; 85730; 87040; 87086; 93005; 93306; 93970; 93971; 96374; 97110; 97116; 97162; 97166; 99285; C1725; J1200; J1650; J1815; J1940; J3490; A4315

== ENCOUNTER 2018-04-22 12:52 | Inpatient (IN) | payer MEDICARE, MEDICAID ==
[~2018-04-22] VITALS: Ht 165.1 cm; Wt 81.2 kg
[~2018-04-22 12:52] MED LIST changes: -SPIR50TA26 PO; +SPIR50TA5 PO
[2018-04-22] MEDS ORDERED: BIMA2.5D4 EACHEYE (13:15)
[2018-04-22] MEDS ORDERED: MOM MT (13:15)
[2018-04-22] MEDS ORDERED: FURO40TA5 PO (13:15)
[2018-04-22] MEDS ORDERED: BRIN8DRO EACHEYE (13:15)
[2018-04-22] MEDS ORDERED: INSU100I28 SQ (13:15)
[2018-04-22] MEDS ORDERED: FOLI0.8T23 PO (13:15)
[2018-04-22] MEDS ORDERED: HYDR-4001 PO (13:15)
[2018-04-22] MEDS ORDERED: ASPIRIN 325MG TABLET PO ONE (15:00)
[2018-04-22] MEDS ORDERED: NITROGLYCERIN OINT 1GM/INCH UDPKT TD ONE (15:00)
[2018-04-22 15:33] LABS: BASOPHILS % 0.4 % (0.0-2.0); EOSINOPHILS % 3.5 % (0.0-5.0); HEMATOCRIT. 26.9 % (36.0-48.0); HEMOGLOBIN. 9.2 g/dL (12.0-16.0); LYMPHOCYTES % 16.4 % (20.0-50.0); MEAN CORPUSCULAR HEMOGLOBIN 28.5 pg (28.0-32.0); MEAN CORPUSCULAR VOLUME 83.4 fL (81.0-99.0); MEAN PLATELET VOLUME 6.8 fl (7.4-10.4); MONOCYTES % 12.9 % (2.0-8.0); NEUTROPHILS % 66.8 % (40.0-76.0); PLATELET 219 x1000/uL (130-400); RED BLOOD CELL COUNT 3.22 mill/uL (4.2-5.4); RED CELL DISTRIBUTION WIDTH 15.6 % (11.6-14.6)
[2018-04-22 15:38] LABS: CHLORIDE 91 mEq/L (98-107)
[2018-04-22 15:39] LABS: INR 1.1; PROTHROMBIN TIME 11.3 sec (9.1-11.1)
[2018-04-22 15:48] LABS: CREATINE KINASE 83 IU/L (26-192)
[2018-04-22] MEDS ORDERED: DIPHENHYDRAMINE 50MG/ML VIAL IV PRN (22:30)
[2018-04-22] MEDS ORDERED: ONDANSETRON HCL 4MG/2ML INJ IV PRN (22:30)
[2018-04-22] MEDS ORDERED: ACETAMINOPHEN 325MG TABLET PO PRN (22:30)
[2018-04-22] MEDS ORDERED: DOCUSATE SODIUM 100MG CAPSULE PO PRN (22:30)
[2018-04-22] MEDS ORDERED: CLONIDINE 0.1MG TABLET PO PRN (22:30)
[2018-04-22 23:51] VITALS: BP 132/42
[2018-04-23] MEDS ORDERED: MAGNESIUM 2 G PREMIX 50 ML IV SCH
[2018-04-23] MEDS ORDERED: MAGNESIUM SULFATE 2 GM in DEXTROSE 5% WATER 50 ML IV NR ×2
[2018-04-23] MEDS: CLOPIDOGREL 75MG TABLET PO SCH ×2 (00:25→08:19)
[2018-04-23 04:31] VITALS: BP 121/43
[2018-04-23] MEDS ORDERED: DEXTROSE 50% WATER 50ML SYRINGE IV PRN (05:45)
[2018-04-23] MEDS ORDERED: BLOOD SUGAR DIAGNOSTIC STRIP TEST SCH (06:02)
[2018-04-23] MEDS: HYDROCODONE/ACETAMINOPHEN 5/325MG TABLET PO PRN ×2 (06:09→21:38)
[2018-04-23 07:27] LABS: CREATINE KINASE MB FRACTION 1.7 ng/mL (0.5-3.6)
[2018-04-23 07:32] LABS: BG BASE EXCESS -1.4 mmol/L (-2.0-2.0); BG CARBOXYHEMOGLOBIN 0.4 % (0.5-1.5); BG DEOXYHEMOGLOBIN 2.4 % (0.0-5.0); BG HCO3 ACT 22.1 mmol/L (22.0-26.0); BG METHEMOGLOBIN 0.3 % (0.0-1.5); BG OXYGEN SATURATION 97.6 % (92.0-98.5); BG OXYHEMOGLOBIN 96.9 % (94.0-97.0); BG PCO2 32.4 mmHg (35.0-45.0); BG PH 7.452 (7.350-7.450); BG PO2 101.1 mmHg (75.0-100.0); BG SAMPLE SITE RIGHT BRACHIAL; BG TOTAL HEMOGLOBIN 9.5 g/dL (12.0-18.0); BG VENT MODE ROOM AIR
[2018-04-23 08:02] VITALS: BP 131/46
[2018-04-23] MEDS: METOLAZONE 2.5MG TABLET PO SCH ×2 (08:19→17:55)
[2018-04-23] MEDS: INSULIN LISPRO 100 UNITS/ML SUBCUT SCH ×5 (08:19→21:42)
[2018-04-23] MEDS: SPIRONOLACTONE 50MG TABLET PO SCH (08:20)
[2018-04-23] MEDS: ALLOPURINOL 100 MG TABLET PO SCH (08:20)
[2018-04-23] MEDS: FUROSEMIDE 40MG TABLET PO SCH (08:20)
[2018-04-23] MEDS: ENOXAPARIN 40MG/0.4ML SYR SUBCUT SCH (08:21)
[2018-04-23 11:21] VITALS: BP 125/34
[2018-04-23] MEDS: BLOOD SUGAR DIAGNOSTIC STRIP TEST SCH ×3 (13:03→21:33)
[2018-04-23 15:43] VITALS: BP 133/47
[2018-04-23 15:56] LABS: CREATINE KINASE 124 IU/L (26-192)
[2018-04-23 15:57] LABS: CREATINE KINASE MB FRACTION 1.8 ng/mL (0.5-3.6)
[2018-04-23 16:09] LABS: CLARITY URINE CLEAR (CLEAR); COLOR URINE YELLOW (YELLOW); KETONES URINE NEGATIVE (NEGATIVE); LEUKOCYTE ESTERASE URINE TRACE (NEGATIVE); NITRITE URINE NEGATIVE (NEGATIVE); OCCULT BLOOD URINE NEGATIVE (NEGATIVE); PROTEIN URINE NEGATIVE (NEGATIVE); SPECIFIC GRAVITY URINE 1.007 (1.005-1.030); UROBILINOGEN URINE 0.2 E.U./dL (0.2-1.0)
[2018-04-23 19:52] VITALS: BP 149/49
[2018-04-23] MEDS: LATANOPROST 0.005% OPHTH DROPS 2.5ML BOTHEYE SCH (21:39)
[2018-04-23] MEDS: ATORVASTATIN CALCIUM 40MG TABLET PO SCH (21:39)
[2018-04-24] VITALS (7 sets, daily range): BP systolic 124–153; BP diastolic 38–55
[2018-04-24] MEDS: BLOOD SUGAR DIAGNOSTIC STRIP TEST SCH ×4 (06:14→21:17)
[2018-04-24 06:24] LABS: CHLORIDE 94 mEq/L (98-107)
[2018-04-24 06:26] LABS: BASOPHILS % 0.2 % (0.0-2.0); EOSINOPHILS % 2.8 % (0.0-5.0); HEMATOCRIT. 26.8 % (36.0-48.0); HEMOGLOBIN. 9.2 g/dL (12.0-16.0); LYMPHOCYTES % 15.7 % (20.0-50.0); MEAN CORPUSCULAR HEMOGLOBIN 28.3 pg (28.0-32.0); MEAN CORPUSCULAR VOLUME 82.7 fL (81.0-99.0); MEAN PLATELET VOLUME 7.1 fl (7.4-10.4); MONOCYTES % 9.9 % (2.0-8.0); NEUTROPHILS % 71.4 % (40.0-76.0); PLATELET 245 x1000/uL (130-400); RED BLOOD CELL COUNT 3.24 mill/uL (4.2-5.4); RED CELL DISTRIBUTION WIDTH 15.7 % (11.6-14.6)
[2018-04-24 06:45] LABS: PHOSPHORUS 3.4 mg/dL (2.5-4.9)
[2018-04-24] MEDS: INSULIN LISPRO 100 UNITS/ML SUBCUT SCH ×4 (07:40→21:22)
[2018-04-24] MEDS: SPIRONOLACTONE 50MG TABLET PO SCH (08:23)
[2018-04-24] MEDS: METOLAZONE 2.5MG TABLET PO SCH ×2 (08:23→17:21)
[2018-04-24] MEDS: CLOPIDOGREL 75MG TABLET PO SCH (08:23)
[2018-04-24] MEDS: ALLOPURINOL 100 MG TABLET PO SCH (08:24)
[2018-04-24] MEDS: FUROSEMIDE 40MG TABLET PO SCH (08:24)
[2018-04-24] MEDS: ENOXAPARIN 40MG/0.4ML SYR SUBCUT SCH (08:25)
[2018-04-24] MEDS ORDERED: PREGABALIN 25MG CAPSULE PO NR ×2 (08:30→08:36)
[2018-04-24] MEDS: HYDROCODONE/ACETAMINOPHEN 5/325MG TABLET PO PRN (09:14)
[2018-04-24] MEDS ORDERED: PREGABALIN 25MG CAPSULE PO PRN ×2 (21:00)
[2018-04-24] MEDS: LATANOPROST 0.005% OPHTH DROPS 2.5ML BOTHEYE SCH (21:21)
[2018-04-24] MEDS: ATORVASTATIN CALCIUM 40MG TABLET PO SCH (21:21)
[2018-04-25 03:46] VITALS: BP 126/39
[2018-04-25] MEDS: HYDROCODONE/ACETAMINOPHEN 5/325MG TABLET PO PRN (04:37)
[2018-04-25] MEDS: BLOOD SUGAR DIAGNOSTIC STRIP TEST SCH ×2 (06:13→12:32)
[2018-04-25 06:19] LABS: BASOPHILS % 0.4 % (0.0-2.0); HEMATOCRIT. 26.3 % (36.0-48.0); HEMOGLOBIN. 9.2 g/dL (12.0-16.0); LYMPHOCYTES % 16.1 % (20.0-50.0); MONOCYTES % 11.6 % (2.0-8.0); NEUTROPHILS % 67.9 % (40.0-76.0); PLATELET 235 x1000/uL (130-400); RED BLOOD CELL COUNT 3.17 mill/uL (4.2-5.4); RED CELL DISTRIBUTION WIDTH 15.7 % (11.6-14.6)
[2018-04-25 06:20] LABS: PHOSPHORUS 3.4 mg/dL (2.5-4.9)
[2018-04-25 07:39] VITALS: BP 135/33
[2018-04-25 08:25] LABS: MICROALBUMIN RANDOM URINE 4.8 ug/mL (Not Estab.)
[2018-04-25] MEDS: ALLOPURINOL 100 MG TABLET PO SCH (08:59)
[2018-04-25] MEDS: METOLAZONE 2.5MG TABLET PO SCH (08:59)
[2018-04-25] MEDS: FUROSEMIDE 40MG TABLET PO SCH (08:59)
[2018-04-25] MEDS: SPIRONOLACTONE 50MG TABLET PO SCH (09:00)
[2018-04-25] MEDS: CLOPIDOGREL 75MG TABLET PO SCH (09:00)
[2018-04-25] MEDS ORDERED: ENOXAPARIN 30MG/0.3ML SYR SUBCUT SCH (09:00)
[2018-04-25] MEDS: INSULIN LISPRO 100 UNITS/ML SUBCUT SCH ×2 (09:03→12:32)
[2018-04-25 11:26] VITALS: BP 135/33
[2018-04-25 11:54] VITALS: BP 123/40
== END 2018-04-25 14:39 | disposition home or self-care (01) | DRG 206 ==
LOC: ER 12:52 → 6WST 17:22 → EDBEDREQ 17:24 → EDBEDREQTM 17:24 → ENRESERV 21:10
PROVIDERS: ADMIT Internal Medicine Nephrology; ATTEND Internal Medicine Nephrology
DX: M94.0 Chondrocostal junction syndrome [Tietze] (principal); I69.354 Hemiplegia and hemiparesis following cerebral infarction affecting left non-dominant side; I13.0 Hypertensive heart and chronic kidney disease with heart failure and stage 1 through stage 4 chronic kidney disease, or unspecified chronic kidney disease; N17.9 Acute kidney failure, unspecified; I31.3 Pericardial effusion (noninflammatory); I50.32 Chronic diastolic (congestive) heart failure; D64.9 Anemia, unspecified; N18.3 Chronic kidney disease, stage 3 (moderate); I27.20 Pulmonary hypertension, unspecified; E11.22 Type 2 diabetes mellitus with diabetic chronic kidney disease; E78.00 Pure hypercholesterolemia, unspecified; E78.5 Hyperlipidemia, unspecified; E66.01 Morbid (severe) obesity due to excess calories; I49.5 Sick sinus syndrome; M62.838 Other muscle spasm; K21.9 Gastro-esophageal reflux disease without esophagitis; M10.9 Gout, unspecified; Z79.4 Long term (current) use of insulin; Z88.0 Allergy status to penicillin; Z90.49 Acquired absence of other specified parts of digestive tract; Z95.0 Presence of cardiac pacemaker; Z79.899 Other long term (current) drug therapy; Z88.6 Allergy status to analgesic agent; Z88.8 Allergy status to other drugs, medicaments and biological substances; Z68.29 Body mass index [BMI] 29.0-29.9, adult
CPT/HCPCS: 36415; 36600; 70450; 71045; 76770; 78580; 80048; 80053; 80061; 81003; 82043; 82375; 82533; 82550; 82553; 82570; 82805; 82962; 83605; 83690; 83735; 83880; 83930; 83935; 84100; 84134; 84443; 84484; 85025; 85610; 87086; 93005; 93306; 93970; 97162; 99285; C1893; J1650; J1815; J3475; J7050; J7060

== ENCOUNTER 2019-01-30 10:18 | Inpatient (IN) | payer MEDICARE, MEDICAID ==
[~2019-01-30] VITALS: Ht 154.9 cm; Wt 83.9 kg
[~2019-01-30 10:18] MED LIST changes: +BRIN8DRO EACHEYE; +FOLI0.8T23 PO; +FURO40TA5 PO; +HYDR-4001 PO; +MOM MT
[2019-01-30 12:33] LABS: BASOPHILS % 0.4 % (0.0-2.0); EOSINOPHILS % 2.2 % (0.0-5.0); HEMATOCRIT. 24.4 % (36.0-48.0); HEMOGLOBIN. 8.4 g/dL (12.0-16.0); LYMPHOCYTES % 16.2 % (20.0-50.0); MEAN CORPUSCULAR HEMOGLOBIN 29.2 pg (28.0-32.0); MEAN CORPUSCULAR VOLUME 84.6 fL (81.0-99.0); MEAN PLATELET VOLUME 6.9 fl (7.4-10.4); MONOCYTES % 11.5 % (2.0-8.0); NEUTROPHILS % 69.7 % (40.0-76.0); PLATELET 178 x1000/uL (130-400); RED BLOOD CELL COUNT 2.89 mill/uL (4.2-5.4); RED CELL DISTRIBUTION WIDTH 15.5 % (11.6-14.6)
[2019-01-30 12:52] LABS: INR 1.1; PARTIAL THROMBOPLASTIN TIME 36.2 sec (23.4-31.0); PROTHROMBIN TIME 11.5 sec (9.6-11.0)
[2019-01-30] MEDS ORDERED: INSU100I13 SQ (13:36)
[2019-01-30] MEDS ORDERED: TADA20TA42 PO (13:36)
[2019-01-30] MEDS ORDERED: LIDOCAINE HCL 1% 20ML VIAL (Pyxis) INJ ONE ×2 (15:01→15:14)
[2019-01-30] MEDS ORDERED: GENTAMICIN/NS IRRIGATION 0 ML IR ONE (15:02)
[2019-01-30] MEDS ORDERED: MIDAZOLAM HCL 2 MG/2 ML VIAL ONE (15:03)
[2019-01-30] MEDS ORDERED: FENTANYL CITRATE/PF 50MCG/ML 2ML VIAL ONE (15:03)
[2019-01-30] MEDS ORDERED: VANCOMYCIN 750 MG PREMIX 150 ML IV SCH (15:30)
[2019-01-30] MEDS ORDERED: IODIXANOL 320MG/ML 100 ML BOTTLE IV ONE (15:55)
[2019-01-30] MEDS ORDERED: DEXTROSE 50% WATER 50ML SYRINGE IV PRN ×2 (17:00→20:00)
[2019-01-30] MEDS: BLOOD SUGAR DIAGNOSTIC STRIP TEST SCH ×2 (17:00→21:23)
[2019-01-30] MEDS ORDERED: INSULIN LISPRO 100 UNITS/ML SUBCUT SCH (17:00)
[2019-01-30 17:18] VITALS: BP 140/101
[2019-01-30] MEDS ORDERED: CEPHALEXIN 250MG CAPSULE PO NR (18:00)
[2019-01-30] MEDS ORDERED: LEVOFLOXACIN 500MG TABLET PO NR (18:00)
[2019-01-30 18:18] VITALS: BP 165/71
[2019-01-30 20:00] VITALS: BP 157/50
[2019-01-30] MEDS ORDERED: CLONIDINE 0.1MG TABLET PO PRN (20:00)
[2019-01-30] MEDS ORDERED: SODIUM CHLORIDE 1000MG TABLET PO NR (20:00)
[2019-01-30] MEDS ORDERED: LORAZEPAM 0.5MG TABLET PO PRN (20:00)
[2019-01-30] MEDS ORDERED: MAGNESIUM/ALUMINUM HYDROXIDE/SIMETHICONE 30ML UDC PO PRN (20:00)
[2019-01-30] MEDS ORDERED: ONDANSETRON HCL 4MG/2ML INJ IV PRN (20:00)
[2019-01-30] MEDS ORDERED: BLOOD SUGAR DIAGNOSTIC STRIP TEST SCH (21:00)
[2019-01-30] MEDS: INSULIN LISPRO 100 UNITS/ML SUBCUT SCH (21:00)
[2019-01-30 21:07] LABS: TOTAL IRON BINDING CAPACITY 237 ug/dL (250-450)
[2019-01-30] MEDS: AMLODIPINE 5MG TABLET PO SCH (21:25)
[2019-01-30 22:00] VITALS: BP 155/60
[2019-01-30] MEDS: ACETAMINOPHEN 325MG TABLET PO PRN (23:09)
[2019-01-31] VITALS (10 sets, daily range): BP systolic 130–154; BP diastolic 48–71
[2019-01-31] MEDS: BLOOD SUGAR DIAGNOSTIC STRIP TEST SCH ×4 (06:24→20:42)
[2019-01-31] MEDS: INSULIN LISPRO 100 UNITS/ML SUBCUT SCH ×4 (06:51→21:36)
[2019-01-31] MEDS ORDERED: LIDOCAINE HCL 1% 20ML VIAL (Pyxis) INJ ONE ×2 (07:13→09:39)
[2019-01-31 07:44] LABS: HEMATOCRIT 23.3 % (36.0-48.0); HEMOGLOBIN 8.1 g/dL (12.0-16.0); MEAN CORPUSCULAR HEMOGLOBIN 29.1 pg (28.0-32.0); PLATELET 179 x1000/uL (130-400); RED BLOOD CELL COUNT 2.77 mill/uL (4.2-5.4); RED CELL DISTRIBUTION WIDTH 15.4 % (11.6-14.6)
[2019-01-31] MEDS ORDERED: CEPHALEXIN 250MG CAPSULE PO NR (09:00)
[2019-01-31] MEDS: AMLODIPINE 5MG TABLET PO SCH ×2 (09:00→21:38)
[2019-01-31] MEDS ORDERED: LEVOFLOXACIN 500MG TABLET PO NR (09:00)
[2019-01-31] MEDS ORDERED: LIDOCAINE HCL/PF 2% 20MG/ML 5 ML/VIAL ONE (09:08)
[2019-01-31] MEDS ORDERED: GENTAMICIN SULF 40MG/ML 2ML VIAL ONE (09:09)
[2019-01-31] MEDS ORDERED: IODIXANOL 320MG/ML 200ML BOTTLE ONE (09:10)
[2019-01-31] MEDS ORDERED: BUPIVACAINE HCL/PF 0.5% (5MG/ML) 10ML ONE (09:39)
[2019-01-31] MEDS ORDERED: PROPOFOL 200MG/20ML VIAL IV ONE (09:58)
[2019-01-31] MEDS ORDERED: MORPHINE SULFATE 2 MG/ML CPJ (NOT FOR IM USE) IV PRN (10:00)
[2019-01-31] MEDS ORDERED: SKIN ADHESIVE 0.7 GM EA TOP ONE ×2 (10:31→10:33)
[2019-01-31] MEDS: GUAIFENESIN 200MG/10ML SUGAR FREE UDC PO PRN ×2 (17:11→21:37)
[2019-01-31] MEDS ORDERED: EPOETIN ALFA 10000UNITS/ML VIAL SUBCUT NR (17:30)
[2019-01-31] MEDS: ACETAMINOPHEN 325MG TABLET PO PRN (22:17)
[2019-02-01] VITALS (10 sets, daily range): BP systolic 113–149; BP diastolic 48–79
[2019-02-01] MEDS: ACETAMINOPHEN 325MG TABLET PO PRN ×2 (04:55→12:58)
[2019-02-01] MEDS: INSULIN LISPRO 100 UNITS/ML SUBCUT SCH ×2 (06:46→13:02)
[2019-02-01] MEDS: BLOOD SUGAR DIAGNOSTIC STRIP TEST SCH ×3 (06:46→16:50)
[2019-02-01] MEDS: AMLODIPINE 5MG TABLET PO SCH (08:40)
[2019-02-01] MEDS: GUAIFENESIN 200MG/10ML SUGAR FREE UDC PO PRN (12:58)
[2019-02-01] MEDS ORDERED: POTASSIUM CHLORIDE 20MEQ TABLET SR PO NR (15:45)
== END 2019-02-01 17:10 | disposition home or self-care (01) | DRG 259 ==
LOC: CCL 10:18 → 3WST 17:46
PROVIDERS: ADMIT Specialist; ATTEND Specialist
PROC: 02HV33Z Insertion of Infusion Device into Superior Vena Cava, Percutaneous Approach (ICD-10-PCS; principal; 2019-01-31)
PROC: 0JH606Z Insertion of Pacemaker, Dual Chamber into Chest Subcutaneous Tissue and Fascia, Open Approach (ICD-10-PCS; 2019-01-31)
PROC: 0JPT0PZ Removal of Cardiac Rhythm Related Device from Trunk Subcutaneous Tissue and Fascia, Open Approach (ICD-10-PCS; 2019-01-31)
PROC: B548ZZA Ultrasonography of Superior Vena Cava, Guidance (ICD-10-PCS; 2019-01-31)
DX: T82.191A Other mechanical complication of cardiac pulse generator (battery), initial encounter (principal); E87.1 Hypo-osmolality and hyponatremia; I13.0 Hypertensive heart and chronic kidney disease with heart failure and stage 1 through stage 4 chronic kidney disease, or unspecified chronic kidney disease; D64.9 Anemia, unspecified; E11.22 Type 2 diabetes mellitus with diabetic chronic kidney disease; E87.6 Hypokalemia; I27.20 Pulmonary hypertension, unspecified; I50.9 Heart failure, unspecified; N18.9 Chronic kidney disease, unspecified; I49.5 Sick sinus syndrome; Y83.8 Other surgical procedures as the cause of abnormal reaction of the patient, or of later complication, without mention of misadventure at the time of the procedure; Z82.49 Family history of ischemic heart disease and other diseases of the circulatory system; Z83.3 Family history of diabetes mellitus; Z86.73 Personal history of transient ischemic attack (TIA), and cerebral infarction without residual deficits; Z95.0 Presence of cardiac pacemaker; Z90.49 Acquired absence of other specified parts of digestive tract; Z88.0 Allergy status to penicillin; Z88.8 Allergy status to other drugs, medicaments and biological substances; Z79.899 Other long term (current) drug therapy; Z79.4 Long term (current) use of insulin; Y92.89 Other specified places as the place of occurrence of the external cause
CPT/HCPCS: 36415; 71045; 76937; 80048; 82962; 83540; 83550; 85027; 88300; 93970; A4565; C1725; C1785; J0885; J1580; J1644; J1815; J2250; J2704; J3010; J3370; J3490; J7040; Q9967

== ENCOUNTER 2020-03-29 18:16 | Inpatient (IN) | payer MEDICARE, MEDICAID ==
[~2020-03-29] VITALS: Ht 166.4 cm; Wt 73.5 kg
[~2020-03-29 18:16] MED LIST changes: -BRIN8DRO EACHEYE; -FOLI0.8T23 PO; +INSU100I13 SQ; -METO5TAB69 PO; +METO5TAB7 PO; -OCD PO; -SITA50TA3 PO; +TADA20TA42 PO; -TADA5TAB PO
[2020-03-29] MEDS ORDERED: LEVOFLOXACIN 750MG PREMIX 150 ML IV ONE (19:45)
[2020-03-29] MEDS ORDERED: VANCOMYCIN 1 G PREMIX 200 ML IV SCH (19:45)
[2020-03-29] MEDS ORDERED: MORPHINE SULFATE 2 MG/ML CPJ (NOT FOR IM USE) IV ONE (20:00)
[2020-03-29 20:59] LABS: BASOPHILS % 0.1 % (0.0-2.0); EOSINOPHILS % 0.4 % (0.0-5.0); HEMOGLOBIN. 8.6 g/dL (12.0-16.0); LYMPHOCYTES % 10.6 % (20.0-50.0); MEAN CORPUSCULAR HEMOGLOBIN 28.8 pg (28.0-32.0); MONOCYTES % 10.2 % (2.0-8.0); NEUTROPHILS % 78.7 % (40.0-76.0); PLATELET 253 x1000/uL (130-400); RED BLOOD CELL COUNT 2.98 mill/uL (4.2-5.4); RED CELL DISTRIBUTION WIDTH 17.2 % (11.6-14.6)
[2020-03-29 21:02] LABS: CHLORIDE 112 mEq/L (98-107)
[2020-03-29 21:07] LABS: ETHANOL BLOOD < 10 mg/dL
[2020-03-29 21:11] LABS: CREATINE KINASE 77 IU/L (26-192)
[2020-03-29 23:36] LABS: CLARITY URINE TURBID (CLEAR); COLOR URINE YELLOW (YELLOW); KETONES URINE NEGATIVE (NEGATIVE); LEUKOCYTE ESTERASE URINE 3+ (NEGATIVE); NITRITE URINE NEGATIVE (NEGATIVE); OCCULT BLOOD URINE 2+ (NEGATIVE); PROTEIN URINE 1+ (NEGATIVE); SPECIFIC GRAVITY URINE 1.013 (1.005-1.030); UROBILINOGEN URINE 0.2 E.U./dL (0.2-1.0)
[2020-03-29 23:47] LABS: *BARBITURATES SCREEN URINE NEGATIVE (NEGATIVE); *BENZODIAZEPINES SCREEN URINE NEGATIVE (NEGATIVE); *COCAINE SCREEN URINE NEGATIVE (NEGATIVE); METHADONE URINE SCREEN NEGATIVE (NEGATIVE); OPIATES URINE SCREEN PRESUMTIVE POSITIVE (NEGATIVE)
[2020-03-29 23:49] LABS: *AMPHETAMINES SCREEN URINE NEGATIVE (NEGATIVE); CANNABINOID URINE SCREEN NEGATIVE (NEGATIVE); PHENCYCLIDINE URINE SCREEN NEGATIVE (NEGATIVE)
[2020-03-30] MEDS ORDERED: SODIUM CHLORIDE 0.9% 1,000 ML IV ONE (01:00)
[2020-03-30] MEDS ORDERED: CALCIUM GLUCONATE 100MG/ML 10ML VIAL IV ONE (01:00)
[2020-03-30 03:11] VITALS: BP 137/45
[2020-03-30] MEDS ORDERED: DEXTROSE 50% WATER 50ML SYRINGE IV PRN (03:45)
[2020-03-30 04:00] VITALS: BP 141/34
[2020-03-30] MEDS: INSULIN LISPRO 100 UNITS/ML SUBCUT SCH ×4 (05:54→21:00)
[2020-03-30] MEDS: BLOOD SUGAR DIAGNOSTIC STRIP TEST SCH ×4 (05:54→22:32)
[2020-03-30 08:00] VITALS: BP 146/43
[2020-03-30] MEDS: SODIUM CHLORIDE 0.45% 1,000 ML IV SCH ×2 (09:36→22:45)
[2020-03-30 10:23] LABS: BASOPHILS % 0.4 % (0.0-2.0); EOSINOPHILS % 0.2 % (0.0-5.0); HEMATOCRIT. 25.4 % (36.0-48.0); HEMOGLOBIN. 8.7 g/dL (12.0-16.0); LYMPHOCYTES % 9.5 % (20.0-50.0); MEAN CORPUSCULAR HEMOGLOBIN 30.4 pg (28.0-32.0); MEAN CORPUSCULAR VOLUME 88.7 fL (81.0-99.0); MEAN PLATELET VOLUME 8.4 fl (7.4-10.4); MONOCYTES % 9.8 % (2.0-8.0); NEUTROPHILS % 80.1 % (40.0-76.0); PLATELET 497 x1000/uL (130-400); RED BLOOD CELL COUNT 2.87 mill/uL (4.2-5.4); RED CELL DISTRIBUTION WIDTH 17.1 % (11.6-14.6)
[2020-03-30 10:24] LABS: PHOSPHORUS 2.6 mg/dL (2.5-4.9)
[2020-03-30] MEDS: CEFTRIAXONE 1,000 MG in DEXTROSE 5% WATER 50 ML IV SCH (11:21)
[2020-03-30 12:00] VITALS: BP 142/35
[2020-03-30] MEDS ORDERED: SODIUM POLYSTYRENE SULFONATE 15 G/60 ML BOT PO SCH (15:00)
[2020-03-30 20:00] VITALS: BP 125/49
[2020-03-31] VITALS: BP 136/42
[2020-03-31 04:00] VITALS: BP 136/82
[2020-03-31] MEDS: BLOOD SUGAR DIAGNOSTIC STRIP TEST SCH ×4 (05:35→20:08)
[2020-03-31] MEDS: INSULIN LISPRO 100 UNITS/ML SUBCUT SCH ×4 (05:35→20:19)
[2020-03-31 07:19] LABS: BASOPHILS % 0.3 % (0.0-2.0); EOSINOPHILS % 1.3 % (0.0-5.0); HEMATOCRIT. 24.9 % (36.0-48.0); HEMOGLOBIN. 8.4 g/dL (12.0-16.0); LYMPHOCYTES % 12.4 % (20.0-50.0); MEAN CORPUSCULAR HEMOGLOBIN 29.1 pg (28.0-32.0); MEAN PLATELET VOLUME 8.4 fl (7.4-10.4); MONOCYTES % 10.6 % (2.0-8.0); NEUTROPHILS % 75.4 % (40.0-76.0); RED BLOOD CELL COUNT 2.89 mill/uL (4.2-5.4); RED CELL DISTRIBUTION WIDTH 17.2 % (11.6-14.6)
[2020-03-31 08:00] VITALS: BP 119/35
[2020-03-31 08:14] LABS: PLATELET 248 x1000/uL (130-400)
[2020-03-31] MEDS: CEFTRIAXONE 1,000 MG in DEXTROSE 5% WATER 50 ML IV SCH ×2 (11:00→15:06)
[2020-03-31 12:00] VITALS: BP 138/37
[2020-03-31] MEDS ORDERED: SODIUM BICARBONATE 8.4% 1 MEQ/ML 50ML SYR IV NR (12:30)
[2020-03-31] MEDS: SODIUM CHLORIDE 0.45% 1,000 ML IV SCH (15:05)
[2020-03-31 20:00] VITALS: BP 130/49
[2020-04-01] VITALS (7 sets, daily range): BP systolic 114–156; BP diastolic 41–72
[2020-04-01] MEDS: SODIUM CHLORIDE 0.45% 1,000 ML IV SCH ×2 (04:41→15:34)
[2020-04-01] MEDS: BLOOD SUGAR DIAGNOSTIC STRIP TEST SCH ×4 (05:31→19:58)
[2020-04-01] MEDS: INSULIN LISPRO 100 UNITS/ML SUBCUT SCH ×4 (06:02→20:55)
[2020-04-01 07:14] LABS: BASOPHILS % 0.4 % (0.0-2.0); EOSINOPHILS % 1.8 % (0.0-5.0); HEMATOCRIT. 23.4 % (36.0-48.0); HEMOGLOBIN. 7.9 g/dL (12.0-16.0); LYMPHOCYTES % 12.7 % (20.0-50.0); MEAN CORPUSCULAR HEMOGLOBIN 29.2 pg (28.0-32.0); MEAN CORPUSCULAR VOLUME 86.3 fL (81.0-99.0); MEAN PLATELET VOLUME 7.6 fl (7.4-10.4); MONOCYTES % 10.5 % (2.0-8.0); NEUTROPHILS % 74.6 % (40.0-76.0); PLATELET 238 x1000/uL (130-400); RED BLOOD CELL COUNT 2.71 mill/uL (4.2-5.4); RED CELL DISTRIBUTION WIDTH 17.2 % (11.6-14.6)
[2020-04-01] MEDS: CEFTRIAXONE 1,000 MG in DEXTROSE 5% WATER 50 ML IV SCH (11:03)
[2020-04-01] MEDS ORDERED: POTASSIUM CHLORIDE INJ 40 MEQ in DEXT 5% WATER 250 ML IV NR (11:30)
[2020-04-02] VITALS: BP 128/60
[2020-04-02] MEDS: SODIUM CHLORIDE 0.45% 1,000 ML IV SCH (03:11)
[2020-04-02 04:00] VITALS: BP 125/60
[2020-04-02] MEDS: INSULIN LISPRO 100 UNITS/ML SUBCUT SCH ×4 (06:50→21:00)
[2020-04-02] MEDS: BLOOD SUGAR DIAGNOSTIC STRIP TEST SCH ×4 (06:50→21:00)
[2020-04-02] MEDS: HYDROCODONE/ACETAMINOPHEN 5/325MG TABLET PO PRN ×2 (07:06→17:51)
[2020-04-02 08:00] VITALS: BP 154/38
[2020-04-02] MEDS: CEFTRIAXONE 1,000 MG in DEXTROSE 5% WATER 50 ML IV SCH (10:43)
[2020-04-02] MEDS ORDERED: LEVOFLOXACIN 500MG TABLET PO SCH (11:00)
[2020-04-02 12:00] VITALS: BP 139/47
[2020-04-02 16:00] VITALS: BP 125/38
[2020-04-02 20:00] VITALS: BP 120/34
[2020-04-03] VITALS: BP_SYST 128; BP_SYST 139; BP_DIAS 32; BP_DIAS 44
[2020-04-03 04:00] VITALS: BP 139/38
[2020-04-03] MEDS: BLOOD SUGAR DIAGNOSTIC STRIP TEST SCH ×4 (06:20→21:00)
[2020-04-03] MEDS: INSULIN LISPRO 100 UNITS/ML SUBCUT SCH ×4 (06:41→21:00)
[2020-04-03 08:00] VITALS: BP 126/39
[2020-04-03] MEDS: LEVOFLOXACIN 250MG TABLET PO SCH (11:50)
[2020-04-03 12:00] VITALS: BP 128/42
[2020-04-03] MEDS: HYDROCODONE/ACETAMINOPHEN 5/325MG TABLET PO PRN (15:10)
[2020-04-03 16:00] VITALS: BP 125/38
[2020-04-03 20:00] VITALS: BP 124/38
[2020-04-04] VITALS (7 sets, daily range): BP systolic 116–132; BP diastolic 32–66
[2020-04-04 06:48] LABS: BASOPHILS % 0.3 % (0.0-2.0); EOSINOPHILS % 1.9 % (0.0-5.0); HEMATOCRIT. 21.4 % (36.0-48.0); HEMOGLOBIN. 7.3 g/dL (12.0-16.0); LYMPHOCYTES % 15.5 % (20.0-50.0); MEAN CORPUSCULAR HEMOGLOBIN 29.2 pg (28.0-32.0); MEAN CORPUSCULAR VOLUME 85.9 fL (81.0-99.0); MEAN PLATELET VOLUME 6.8 fl (7.4-10.4); MONOCYTES % 10.8 % (2.0-8.0); NEUTROPHILS % 71.5 % (40.0-76.0); PLATELET 172 x1000/uL (130-400); RED BLOOD CELL COUNT 2.49 mill/uL (4.2-5.4); RED CELL DISTRIBUTION WIDTH 17.1 % (11.6-14.6)
[2020-04-04] MEDS: INSULIN LISPRO 100 UNITS/ML SUBCUT SCH ×3 (07:40→17:46)
[2020-04-04] MEDS: BLOOD SUGAR DIAGNOSTIC STRIP TEST SCH ×3 (07:52→17:42)
[2020-04-04] MEDS: LEVOFLOXACIN 250MG TABLET PO SCH (11:22)
[2020-04-04] MEDS: HYDROCODONE/ACETAMINOPHEN 5/325MG TABLET PO PRN (11:32)
[2020-04-04] MEDS ORDERED: POTASSIUM CHLORIDE 20MEQ TABLET SR PO NR (16:45)
== END 2020-04-04 21:30 | DRG 70 ==
LOC: ER 18:16 → 8WST 22:22 → ENRESERV 23:01 → 8WST 03-30 03:21
PROVIDERS: ADMIT Internal Medicine; ATTEND Internal Medicine
DX: G93.41 Metabolic encephalopathy (principal); N17.0 Acute kidney failure with tubular necrosis; N39.0 Urinary tract infection, site not specified; L97.419 Non-pressure chronic ulcer of right heel and midfoot with unspecified severity; L89.156 Pressure-induced deep tissue damage of sacral region; I50.9 Heart failure, unspecified; L90.5 Scar conditions and fibrosis of skin; L85.3 Xerosis cutis; I27.20 Pulmonary hypertension, unspecified; D64.9 Anemia, unspecified; E11.621 Type 2 diabetes mellitus with foot ulcer; E87.5 Hyperkalemia; E87.8 Other disorders of electrolyte and fluid balance, not elsewhere classified; F03.90 Unspecified dementia, unspecified severity, without behavioral disturbance, psychotic disturbance, mood disturbance, and anxiety; G93.89 Other specified disorders of brain; I11.0 Hypertensive heart disease with heart failure; Z20.828 Contact with and (suspected) exposure to other viral communicable diseases; L97.519 Non-pressure chronic ulcer of other part of right foot with unspecified severity; I25.10 Atherosclerotic heart disease of native coronary artery without angina pectoris; Z86.73 Personal history of transient ischemic attack (TIA), and cerebral infarction without residual deficits; Z88.0 Allergy status to penicillin; Z95.810 Presence of automatic (implantable) cardiac defibrillator; Z88.1 Allergy status to other antibiotic agents; Z88.8 Allergy status to other drugs, medicaments and biological substances; Z79.4 Long term (current) use of insulin; Z79.84 Long term (current) use of oral hypoglycemic drugs; Z79.899 Other long term (current) drug therapy; Z90.49 Acquired absence of other specified parts of digestive tract
CPT/HCPCS: 36415; 71045; 73700; 76770; 80048; 80053; 80061; 80305; 80320; 81003; 82040; 82140; 82550; 82962; 83036; 83605; 84100; 84134; 84443; 84484; 85025; 86850; 86900; 87077; 87186; 87635; 93005; 93306; 93970; 97162; 97166; 99291; J0610; J0696; J1815; J1956; J2270; J3370; J3480; J3490; J7030; J7060; G0480

== ENCOUNTER 2020-09-19 14:51 | Inpatient (IN) | payer MEDICARE, MEDICAID ==
[~2020-09-19] VITALS: Ht 162.6 cm; Wt 89.1 kg
[2020-09-19 16:06] LABS: CHLORIDE 109 mEq/L (98-107)
[2020-09-19 16:31] LABS: BASOPHILS % 0.6 % (0.0-2.0); EOSINOPHILS % 4.4 % (0.0-5.0); HEMATOCRIT. 21.6 % (36.0-48.0); HEMOGLOBIN. 7.3 g/dL (12.0-16.0); LYMPHOCYTES % 16.4 % (20.0-50.0); MEAN CORPUSCULAR HEMOGLOBIN 30.4 pg (28.0-32.0); MEAN CORPUSCULAR VOLUME 89.4 fL (81.0-99.0); MEAN PLATELET VOLUME 6.9 fl (7.4-10.4); MONOCYTES % 8.6 % (2.0-8.0); PLATELET 238 x1000/uL (130-400); RED BLOOD CELL COUNT 2.41 mill/uL (4.2-5.4)
[2020-09-19] MEDS ORDERED: FUROSEMIDE 40MG/4ML VIAL IVP NR (17:30)
[2020-09-19] MEDS ORDERED: CLONIDINE 0.1MG TABLET PO PRN (20:45)
[2020-09-19] MEDS ORDERED: DEXTROSE 50% WATER 50ML SYRINGE IV PRN (20:45)
[2020-09-19] MEDS ORDERED: ENOXAPARIN 40MG/0.4ML SYR SUBCUT SCH (20:45)
[2020-09-19] MEDS ORDERED: MAGNESIUM/ALUMINUM HYDROXIDE/SIMETHICONE 30ML UDC PO PRN (20:45)
[2020-09-19] MEDS ORDERED: ONDANSETRON HCL 4MG/2ML INJ IV PRN (20:45)
[2020-09-19] MEDS ORDERED: DIPHENHYDRAMINE 50MG/ML VIAL IV PRN (20:45)
[2020-09-19] MEDS ORDERED: ACETAMINOPHEN 325MG TABLET PO PRN (20:45)
[2020-09-19] MEDS: POTASSIUM CHLORIDE 20MEQ TABLET SR PO SCH (21:00)
[2020-09-19] MEDS: BLOOD SUGAR DIAGNOSTIC STRIP TEST SCH (21:00)
[2020-09-19] MEDS ORDERED: ZOLPIDEM TARTRATE 5MG TABLET PO PRN (21:00)
[2020-09-19 21:35] LABS: TOTAL IRON BINDING CAPACITY 148 ug/dL (250-450)
[2020-09-19] MEDS: AMLODIPINE 5MG TABLET PO SCH (21:37)
[2020-09-19] MEDS: OMEPRAZOLE 20MG CAPSULE EXTENDED RELEASE PO SCH (21:38)
[2020-09-19] MEDS: FUROSEMIDE 40MG/4ML VIAL IVP SCH (21:38)
[2020-09-19] MEDS: SODIUM CHLORIDE 0.9% INJ 3ML FLUSH IVF SCH (22:00)
[2020-09-19 23:00] VITALS: BP 161/63
[2020-09-20] MEDS: INSULIN LISPRO 100 UNITS/ML SUBCUT SCH ×4 (06:31→21:26)
[2020-09-20] MEDS: SODIUM CHLORIDE 0.9% INJ 3ML FLUSH IVF SCH ×3 (06:32→21:16)
[2020-09-20] MEDS: BLOOD SUGAR DIAGNOSTIC STRIP TEST SCH ×4 (07:10→21:15)
[2020-09-20 07:47] LABS: BASOPHILS % 0.6 % (0.0-2.0); EOSINOPHILS % 3.7 % (0.0-5.0); HEMOGLOBIN. 7.2 g/dL (12.0-16.0); LYMPHOCYTES % 18.8 % (20.0-50.0); MEAN CORPUSCULAR HEMOGLOBIN 29.5 pg (28.0-32.0); MEAN CORPUSCULAR VOLUME 90.2 fL (81.0-99.0); MEAN PLATELET VOLUME 7.2 fl (7.4-10.4); MONOCYTES % 9.3 % (2.0-8.0); NEUTROPHILS % 67.6 % (40.0-76.0); PLATELET 237 x1000/uL (130-400); RED BLOOD CELL COUNT 2.43 mill/uL (4.2-5.4)
[2020-09-20 08:00] VITALS: BP 157/67
[2020-09-20 08:04] LABS: CHLORIDE 110 mEq/L (98-107)
[2020-09-20] MEDS: ENOXAPARIN 30MG/0.3ML SYR SUBCUT SCH (08:55)
[2020-09-20] MEDS: OMEPRAZOLE 20MG CAPSULE EXTENDED RELEASE PO SCH (08:56)
[2020-09-20] MEDS: AMLODIPINE 5MG TABLET PO SCH ×2 (08:56→21:15)
[2020-09-20] MEDS: FUROSEMIDE 40MG/4ML VIAL IVP SCH ×2 (08:57→18:17)
[2020-09-20] MEDS: POTASSIUM CHLORIDE 20MEQ TABLET SR PO SCH ×3 (08:59→18:11)
[2020-09-20 12:00] VITALS: BP 140/61
[2020-09-20] MEDS: ACETAMINOPHEN 325MG TABLET PO PRN (15:41)
[2020-09-20 16:00] VITALS: BP 143/52
[2020-09-20 20:00] VITALS: BP 132/57
[2020-09-20] MEDS ORDERED: MAGNESIUM 1 G PREMIX 100 ML IV NR (20:00)
[2020-09-21] VITALS: BP 134/80
[2020-09-21 04:00] VITALS: BP 132/58
[2020-09-21] MEDS: SODIUM CHLORIDE 0.9% INJ 3ML FLUSH IVF SCH ×3 (05:54→21:10)
[2020-09-21] MEDS: BLOOD SUGAR DIAGNOSTIC STRIP TEST SCH ×4 (05:54→21:10)
[2020-09-21] MEDS: FUROSEMIDE 40MG/4ML VIAL IVP SCH ×2 (05:54→17:39)
[2020-09-21] MEDS: ACETAMINOPHEN 325MG TABLET PO PRN (06:02)
[2020-09-21] MEDS: INSULIN LISPRO 100 UNITS/ML SUBCUT SCH ×4 (06:12→21:09)
[2020-09-21 08:00] VITALS: BP 148/62
[2020-09-21] MEDS: ENOXAPARIN 30MG/0.3ML SYR SUBCUT SCH (09:02)
[2020-09-21] MEDS: POTASSIUM CHLORIDE 20MEQ TABLET SR PO SCH ×2 (09:03→17:39)
[2020-09-21] MEDS: FAMOTIDINE 20MG TABLET PO SCH (09:03)
[2020-09-21] MEDS: AMLODIPINE 5MG TABLET PO SCH ×2 (09:03→21:08)
[2020-09-21 12:00] VITALS: BP 142/51
[2020-09-21 16:00] VITALS: BP 133/63
[2020-09-21 20:00] VITALS: BP 152/59
[2020-09-22] VITALS: BP 128/70
[2020-09-22 04:00] VITALS: BP 143/66
[2020-09-22] MEDS: BLOOD SUGAR DIAGNOSTIC STRIP TEST SCH ×4 (05:06→20:32)
[2020-09-22] MEDS: INSULIN LISPRO 100 UNITS/ML SUBCUT SCH ×4 (05:06→20:32)
[2020-09-22] MEDS: SODIUM CHLORIDE 0.9% INJ 3ML FLUSH IVF SCH ×3 (05:06→20:32)
[2020-09-22 08:00] VITALS: BP 155/62
[2020-09-22] MEDS: FUROSEMIDE 40MG/4ML VIAL IVP SCH ×2 (09:09→17:24)
[2020-09-22] MEDS: ENOXAPARIN 30MG/0.3ML SYR SUBCUT SCH (09:09)
[2020-09-22] MEDS: AMLODIPINE 5MG TABLET PO SCH ×2 (09:09→20:31)
[2020-09-22] MEDS: FAMOTIDINE 20MG TABLET PO SCH (09:09)
[2020-09-22] MEDS: POTASSIUM CHLORIDE 20MEQ TABLET SR PO SCH ×2 (09:09→17:24)
[2020-09-22 12:00] VITALS: BP 151/49
[2020-09-22] MEDS: ACETAMINOPHEN 325MG TABLET PO PRN (13:17)
[2020-09-22 16:00] VITALS: BP 130/50
[2020-09-22 20:00] VITALS: BP 143/62
[2020-09-22] MEDS ORDERED: SODIUM CHLORIDE 0.9% 500 ML IV SCH (21:15)
[2020-09-22] MEDS: LOSARTAN POTASSIUM 50 MG TABLET PO SCH (21:29)
[2020-09-23] VITALS: BP 138/53
[2020-09-23] MEDS: ACETAMINOPHEN 325MG TABLET PO PRN ×2 (01:56→18:16)
[2020-09-23 04:00] VITALS: BP 143/46
[2020-09-23] MEDS: SODIUM CHLORIDE 0.9% INJ 3ML FLUSH IVF SCH ×3 (05:09→20:39)
[2020-09-23] MEDS: BLOOD SUGAR DIAGNOSTIC STRIP TEST SCH ×4 (05:10→20:43)
[2020-09-23] MEDS: INSULIN LISPRO 100 UNITS/ML SUBCUT SCH ×4 (05:11→20:43)
[2020-09-23 06:56] LABS: BASOPHILS % 0.3 % (0.0-2.0); EOSINOPHILS % 1.5 % (0.0-5.0); HEMATOCRIT. 22.5 % (36.0-48.0); HEMOGLOBIN. 7.3 g/dL (12.0-16.0); LYMPHOCYTES % 12.9 % (20.0-50.0); MEAN CORPUSCULAR HEMOGLOBIN 29.3 pg (28.0-32.0); MEAN CORPUSCULAR VOLUME 90.4 fL (81.0-99.0); MEAN PLATELET VOLUME 7.3 fl (7.4-10.4); MONOCYTES % 6.8 % (2.0-8.0); NEUTROPHILS % 78.5 % (40.0-76.0); PLATELET 242 x1000/uL (130-400); RED BLOOD CELL COUNT 2.49 mill/uL (4.2-5.4); RED CELL DISTRIBUTION WIDTH 17.8 % (11.6-14.6)
[2020-09-23 08:00] VITALS: BP 138/61
[2020-09-23] MEDS: FAMOTIDINE 20MG TABLET PO SCH (09:42)
[2020-09-23] MEDS: FUROSEMIDE 40MG/4ML VIAL IVP SCH (09:42)
[2020-09-23] MEDS: AMLODIPINE 5MG TABLET PO SCH ×2 (09:42→20:38)
[2020-09-23] MEDS: POTASSIUM CHLORIDE 20MEQ TABLET SR PO SCH (09:42)
[2020-09-23] MEDS: LOSARTAN POTASSIUM 50 MG TABLET PO SCH (09:42)
[2020-09-23] MEDS: ENOXAPARIN 30MG/0.3ML SYR SUBCUT SCH (09:43)
[2020-09-23 16:08] VITALS: BP 124/50
[2020-09-23 16:50] LABS: FOLIC ACID (FOLATE) SERUM 9.7 ng/mL (>5.38)
[2020-09-23 20:00] VITALS: BP 129/69
[2020-09-23] MEDS: FUROSEMIDE 40MG TABLET PO SCH (20:38)
[2020-09-24] VITALS (8 sets, daily range): BP systolic 114–160; BP diastolic 50–80
[2020-09-24] MEDS: INSULIN LISPRO 100 UNITS/ML SUBCUT SCH ×4 (05:17→21:00)
[2020-09-24] MEDS: SODIUM CHLORIDE 0.9% INJ 3ML FLUSH IVF SCH ×3 (05:17→22:00)
[2020-09-24] MEDS: BLOOD SUGAR DIAGNOSTIC STRIP TEST SCH ×4 (05:17→21:00)
[2020-09-24 07:37] LABS: BASOPHILS % 0.7 % (0.0-2.0); EOSINOPHILS % 3.4 % (0.0-5.0); HEMATOCRIT. 21.2 % (36.0-48.0); LYMPHOCYTES % 21.6 % (20.0-50.0); MEAN CORPUSCULAR HEMOGLOBIN 29.7 pg (28.0-32.0); MEAN CORPUSCULAR VOLUME 89.8 fL (81.0-99.0); MEAN PLATELET VOLUME 7.4 fl (7.4-10.4); MONOCYTES % 8.7 % (2.0-8.0); NEUTROPHILS % 65.6 % (40.0-76.0); PLATELET 261 x1000/uL (130-400); RED BLOOD CELL COUNT 2.36 mill/uL (4.2-5.4); RED CELL DISTRIBUTION WIDTH 17.6 % (11.6-14.6)
[2020-09-24] MEDS: FAMOTIDINE 20MG TABLET PO SCH (08:20)
[2020-09-24] MEDS: FUROSEMIDE 40MG TABLET PO SCH ×2 (08:20→22:06)
[2020-09-24] MEDS: ENOXAPARIN 30MG/0.3ML SYR SUBCUT SCH (08:20)
[2020-09-24] MEDS: LOSARTAN POTASSIUM 50 MG TABLET PO SCH (08:20)
[2020-09-24] MEDS: AMLODIPINE 5MG TABLET PO SCH ×2 (08:21→22:06)
[2020-09-24] MEDS: ACETAMINOPHEN 325MG TABLET PO PRN (22:17)
[2020-09-24] MEDS ORDERED: ZOLPIDEM TARTRATE 5MG TABLET PO PRN (23:30)
[2020-09-25] VITALS: BP 116/77
[2020-09-25 04:00] VITALS: BP 121/56
[2020-09-25] MEDS: INSULIN LISPRO 100 UNITS/ML SUBCUT SCH ×3 (05:11→17:36)
[2020-09-25] MEDS: BLOOD SUGAR DIAGNOSTIC STRIP TEST SCH ×3 (05:11→17:36)
[2020-09-25] MEDS: SODIUM CHLORIDE 0.9% INJ 3ML FLUSH IVF SCH ×2 (05:12→13:20)
[2020-09-25 07:07] LABS: BASOPHILS % 0.8 % (0.0-2.0); EOSINOPHILS % 3.9 % (0.0-5.0); HEMATOCRIT. 25.5 % (36.0-48.0); HEMOGLOBIN. 8.3 g/dL (12.0-16.0); LYMPHOCYTES % 24.5 % (20.0-50.0); MEAN CORPUSCULAR VOLUME 89.2 fL (81.0-99.0); MEAN PLATELET VOLUME 7.3 fl (7.4-10.4); MONOCYTES % 9.4 % (2.0-8.0); NEUTROPHILS % 61.4 % (40.0-76.0); PLATELET 250 x1000/uL (130-400); RED BLOOD CELL COUNT 2.85 mill/uL (4.2-5.4); RED CELL DISTRIBUTION WIDTH 18.4 % (11.6-14.6)
[2020-09-25 08:00] VITALS: BP 142/55
[2020-09-25] MEDS: LOSARTAN POTASSIUM 50 MG TABLET PO SCH (08:58)
[2020-09-25] MEDS: AMLODIPINE 5MG TABLET PO SCH (08:58)
[2020-09-25] MEDS: ENOXAPARIN 30MG/0.3ML SYR SUBCUT SCH (08:58)
[2020-09-25] MEDS: FUROSEMIDE 40MG TABLET PO SCH (08:58)
[2020-09-25] MEDS: FAMOTIDINE 20MG TABLET PO SCH (08:58)
[2020-09-25] MEDS: ACETAMINOPHEN 325MG TABLET PO PRN (09:03)
[2020-09-25 12:00] VITALS: BP 133/57
[2020-09-25 16:00] VITALS: BP 137/57
[2020-09-25 17:25] VITALS: BP 133/57
[2020-09-27 13:06] LABS: ANTI-NUCLEAR ANTIBODIES DIRECT Positive (Negative)
[2020-09-29 19:06] LABS: 25-HYDROXY VITAMIN D3 21 ng/mL (.)
== END 2020-09-25 17:25 | DRG 291 ==
LOC: ER 14:51 → EDBEDREQ 17:19 → 8WST 18:25 → EDBEDREQ 18:27 → EDBEDREQTM 18:27 → ENRESERV 21:16
PROVIDERS: ADMIT Internal Medicine; ATTEND Internal Medicine
PROC: 30233N1 Transfusion of Nonautologous Red Blood Cells into Peripheral Vein, Percutaneous Approach (ICD-10-PCS; principal; 2020-09-24)
DX: I13.0 Hypertensive heart and chronic kidney disease with heart failure and stage 1 through stage 4 chronic kidney disease, or unspecified chronic kidney disease (principal); L89.153 Pressure ulcer of sacral region, stage 3; J96.01 Acute respiratory failure with hypoxia; G82.50 Quadriplegia, unspecified; I50.43 Acute on chronic combined systolic (congestive) and diastolic (congestive) heart failure; I31.3 Pericardial effusion (noninflammatory); E46 Unspecified protein-calorie malnutrition; D72.819 Decreased white blood cell count, unspecified; I27.20 Pulmonary hypertension, unspecified; I08.1 Rheumatic disorders of both mitral and tricuspid valves; E11.22 Type 2 diabetes mellitus with diabetic chronic kidney disease; D63.8 Anemia in other chronic diseases classified elsewhere; R94.6 Abnormal results of thyroid function studies; I49.5 Sick sinus syndrome; I25.10 Atherosclerotic heart disease of native coronary artery without angina pectoris; N18.9 Chronic kidney disease, unspecified; Z20.822 Contact with and (suspected) exposure to COVID-19; Z95.0 Presence of cardiac pacemaker; Z88.8 Allergy status to other drugs, medicaments and biological substances; Z90.49 Acquired absence of other specified parts of digestive tract; Z88.0 Allergy status to penicillin; Z88.1 Allergy status to other antibiotic agents; Z88.6 Allergy status to analgesic agent; Z79.899 Other long term (current) drug therapy; Z79.02 Long term (current) use of antithrombotics/antiplatelets; Z68.33 Body mass index [BMI] 33.0-33.9, adult; Z82.49 Family history of ischemic heart disease and other diseases of the circulatory system; Z86.73 Personal history of transient ischemic attack (TIA), and cerebral infarction without residual deficits
CPT/HCPCS: 36415; 71045; 71250; 78580; 80048; 80053; 82040; 82306; 82607; 82746; 82962; 83036; 83540; 83550; 83735; 83880; 84134; 84443; 84484; 85025; 85379; 85651; 86038; 86140; 86431; 86850; 86900; 86920; 87426; 92523; 92610; 93005; 93306; 93970; 97110; 97116; 97162; 97166; 97530; 97535; 99285; C1893; J1200; J1650; J1815; J1940; J3475; J7030; J7040; P9016